=== PATIENT | male | born 1935 | race Caucasian/White ===

== ENCOUNTER 2016-09-26 06:52 | Emergency (ER) | payer MEDICARE, OTHER ==
[2016-09-26] MEDS ORDERED: OXYMETAZOLINE NASAL SPRAY NAS STA (07:27)
[2016-09-26] MEDS ORDERED: DEXAMETHASONE 10 MG/ML VIAL PO STA (07:27)
[2016-09-26] MEDS ORDERED: SULFAMETH/TRIMETH DS 800/160 MG TABLET PO STA (07:29)
[2016-09-26] MEDS ORDERED: DEXAMETHASONE 10 MG/ML VIAL ONE (07:32)
[2016-09-26] MEDS ORDERED: OXYMETAZOLINE NASAL SPRAY NAS ONE (07:32)
[2016-09-26] MEDS ORDERED: SULFAMETH/TRIMETH DS 800/160 MG TABLET PO ONE (07:32)
[2016-09-26] MEDS ORDERED: CHERRY SYRUP 10 ML UDC PO ONE (07:32)
== END 2016-09-26 07:59 | disposition home or self-care (01) ==
DX: J01.20 Acute ethmoidal sinusitis, unspecified (principal); Z79.01 Long term (current) use of anticoagulants; I48.91 Unspecified atrial fibrillation; I25.10 Atherosclerotic heart disease of native coronary artery without angina pectoris; Z95.1 Presence of aortocoronary bypass graft; Z95.810 Presence of automatic (implantable) cardiac defibrillator; F17.200 Nicotine dependence, unspecified, uncomplicated
CPT/HCPCS: 99283; A9270

== ENCOUNTER 2017-01-26 08:10 | Outpatient (CLI) | payer MEDICARE, OTHER ==
[2017-01-26 14:26] LABS: BASOPHILS # (AUTO) 0.1 10^3/uL (0.0-0.1); BASOPHILS % (AUTO) 1.1 %; EOSINOPHILS # (AUTO) 0.3 10^3/uL (0.0-0.7); EOSINOPHILS % (AUTO) 3.2 %; HCT - HEMATOCRIT 42.8 % (42.0-52.0); HGB - HEMOGLOBIN 14.5 g/dL (14.0-18.0); LYMPHOCYTES # (AUTO) 1.9 10^3/uL (1.5-3.5); LYMPHOCYTES % (AUTO) 21.7 %; MEAN CORPUSCULAR HEMOGLOBIN 34.2 pg (27.0-31.0); MEAN CORPUSCULAR VOLUME 100.6 fL (80.0-94.0); MEAN PLATELET VOLUME 10.6 fL (7.4-11.4); MONOCYTES # (AUTO) 1.5 10^3/uL (0.0-1.0); MONOCYTES % (AUTO) 17.5 %; NEUTROPHILS # (AUTO) 4.9 10^3/uL (1.5-6.6); NEUTROPHILS % (AUTO) 56.5 %; NUCLEATED RED BLOOD CELLS AUTO 0.1 /100WBC; RED BLOOD COUNT 4.25 10^6/uL (4.70-6.10); RED CELL DISTRIBUTION WIDTH 14.6 % (12.0-15.0); UNCORRECTED WHITE BLOOD COUNT 8.7 x10^3/uL; WHITE BLOOD COUNT 8.7 x10^3/uL (4.8-10.8)
[2017-01-26 14:35] LABS: ALBUMIN/GLOBULIN RATIO 1.1 (1.0-2.2); BILIRUBIN,TOTAL 1.1 mg/dL (0.2-1.0); BUN - BLOOD UREA NITROGEN 19 mg/dL (6-20); CALCIUM 9.5 mg/dL (8.5-10.3); CARBON DIOXIDE - CO2 26 mmol/L (21-32); CHLORIDE 103 mmol/L (101-111); CHOL/HDL RATIO 2.9 (<5.0); CHOLESTEROL 99 mg/dL; CREATININE 1.2 mg/dL (0.6-1.2); GFR - MDRD 58 (>89); GLUCOSE 91 mg/dL (70-100); HDL CHOLESTEROL 34 mg/dL; LDL/HDL RATIO 0.9 (<3.6); POTASSIUM 4.2 mmol/L (3.5-5.0); SODIUM 138 mmol/L (135-145); TOTAL PROTEIN 7.8 g/dL (6.7-8.2); TRIGLYCERIDES 171 mg/dL; VLDL CHOLESTEROL 34 mg/dL
== END 2017-01-26 08:11 | disposition home or self-care (01) ==
LOC: LAB.R 08:10
PROVIDERS: ATTEND Internal Medicine
DX: E78.2 Mixed hyperlipidemia (principal); I10 Essential (primary) hypertension; I25.10 Atherosclerotic heart disease of native coronary artery without angina pectoris; Z79.899 Other long term (current) drug therapy
CPT/HCPCS: 80053; 80061; 80162; 85025

== ENCOUNTER 2017-05-07 12:15 | Emergency (ER) | payer MEDICARE, OTHER ==
--- NOTE | 2017-05-07 12:19 | ED Physician Documentation ---
PD HPI DYSPNEA - Stated complaint Stated Complaint: SOA - History obtained from History obtained from: Patient - History of Present Illness Timing - onset: How many weeks ago (2) Timing - onset during: Light activity Timing - details: Gradual onset, Still present (has had cough, malaise, dyspnea and wheeze worsening for 2 weeks. Initially noted after flying to [place], and seen in ER there with heart testing/ECHO that was okay, according to patient. Given ALbuterol MDI. He is still having cough with sputum. Seen in office couple days ago and told to keep up with the inhaler. He is having worse cough and breathing overnight.) Inciting event(s): URI. No: Out of meds Improved by: Inhaler/neb (somewhat) Worsened by: Exertion, Coughing. No: Laying flat Associated symptoms: Cough, Wheezing. No: Hemoptysis, Chest pain / discomfort, Bilateral edema Similar symptoms before: Has not had sx before Recently seen: Clinic, Emergency Dept Review of Systems Constitutional: reports: Chills, Myalgias. denies: Fever Nose: reports: Congestion. denies: Rhinorrhea / runny nose Throat: denies: Sore throat Cardiac: reports: Palpitations. denies: Chest pain / pressure, Pedal edema, Calf pain Respiratory: reports: Cough (with white/green sputum production) GI: reports: Diarrhea (mild for a week). denies: Abdominal Pain, Nausea, Vomiting : denies: Dysuria, Frequency Skin: denies: Rash Neurologic: denies: Generalized weakness, Focal weakness, Numbness, Altered mental status PD PAST MEDICAL HISTORY - Past Medical History Cardiovascular: Congestive heart failure, Coronary artery disease, Atrial fibrillation Respiratory: Sleep apnea, CPAP use Derm: None - Past Surgical History Past Surgical History: Yes Cardiovascular: CABG, AICD - Present Medications Home Medications: Ambulatory Orders Medication Instructions Recorded Confirmed Candesartan Cilexetil [Atacand] 4 mg PO DAILY 11/06/13 05/31/16 Digoxin [Lanoxin] 250 mcg PO DAILY 11/06/13 05/31/16 Montelukast [Singulair] 10 mg PO QPM 11/06/13 05/31/16 Rosuvastatin [Crestor] 40 mg PO QPM 11/06/13 05/31/16 Hydrocodone/Acetaminophen [Lortab 1 each PO Q4HR #14 tablet 05/20/16 05/31/16 5-325 mg Tablet] Aspirin [Aspir-Low] 81 mg PO DAILY 05/31/16 05/31/16 Ciclesonide [Omnaris] 1 spray BIRD DAILY 05/31/16 05/31/16 Krill/Om-3/Dha/Epa/Phospho/Ast 1 cap PO DAILY 05/31/16 05/31/16 [[place]-3 Krill Oil 300 mg Sfgl] Multivitamin [Multivitamins] 1 cap PO DAILY 05/31/16 05/31/16 Olopatadine HCl [Patanase] 1 spray BIRD DAILY 05/31/16 05/31/16 Rabeprazole Sodium [Aciphex] 20 mg PO DAILY 05/31/16 05/31/16 Simvastatin [Zocor] 5 mg PO DAILY 05/31/16 05/31/16 Vitamin E 1 cap PO DAILY 05/31/16 05/31/16 Esomeprazole Magnesium [Nexium] 40 mg PO DAILY 07/29/16 07/29/16 Fluticasone [Flonase] 1 spray INH DAILY 07/29/16 07/29/16 Metoprolol Succinate [Toprol Xl] 25 mg PO DAILY 07/29/16 07/29/16 Rivaroxaban [Xarelto] 20 mg PO DAILY 07/29/16 07/29/16 Dexamethasone [Decadron] 4 mg PO DAILY #5 tablet 09/26/16 Sulfamethoxazole/Trimethoprim 1 each PO BID #14 tablet 09/26/16 [Bactrim Ds Tablet] Dexamethasone [Decadron] 4 mg PO DAILY #5 tablet 05/07/17 Doxycycline Hyclate 100 mg PO BID #14 tablet 05/07/17 - Allergies Allergies/Adverse Reactions: Allergies Allergy/AdvReac Type Severity Reaction Status Date / Time Penicillins Allergy Unknown unk Verified 05/07/17 12:33 - Social History Does the pt smoke?: No Smoking Status: Current some day smoker Does the pt drink ETOH?: No Does the pt have substance abuse?: No - Immunizations Immunizations are current?: Yes - POLST Patient has POLST: No PD ED PE NORMAL - Vitals Vital signs reviewed: Yes - General General: Alert and oriented X 3, Well developed/nourished - HEENT HEENT: Pharynx benign - Neck Neck: Supple, no meningeal sign, No adenopathy - Cardiac Cardiac: RRR, No murmur - Respiratory Respiratory: No: Clear bilaterally (mild scattered wheezing. no coarse sounds. ) - Abdomen Abdomen: Soft, Non tender - Back Back: No CVA TTP - Derm Derm: Normal color, Warm and dry - Extremities Extremities: Normal ROM s pain, No edema, No calf tenderness / cord - Neuro Neuro: Alert and oriented X 3, No motor deficit, Normal speech - Psych Psych: Normal mood, Normal affect Results - Vitals Vitals: Oxygen O2 Source Room air - EKG (time done) 12:39 Rate: Rate (enter#) (70) Rhythm: Paced [place]: Normal Ischemia: Non specific changes - Labs Labs: Laboratory Tests 05/07/17 05/07/17 05/07/17 12:54 12:54 12:54 WBC 7.9 RBC 3.89 L Hgb 13.3 L Hct 39.6 L MCV 101.8 H MCH 34.3 H MCHC 33.7 RDW 16.4 H Plt Count 151 MPV 9.3 Neut # 5.3 Lymph # 1.1 L [place] # 1.2 H Eos # 0.2 Baso # 0.1 Absolute Nucleated RBC 0.00 Nucleated RBCs 0.0 Sodium 137 Potassium 4.1 Chloride 105 Carbon Dioxide 24 Anion Gap 8.0 BUN 16 Creatinine 1.2 Estimated GFR (MDRD) 58 L Glucose 117 H Calcium 9.1 Magnesium 2.3 Total Bilirubin 1.7 H AST 30 ALT 24 Alkaline Phosphatase 118 B-Natriuretic Peptide 600 H Total Protein 7.3 Albumin 3.7 Globulin 3.6 Albumin/Globulin Ratio 1.0 Lipase 44 Last Dose Date Last Dose Time Digoxin 05/07/17 12:54 WBC RBC Hgb Hct MCV MCH MCHC RDW Plt Count MPV Neut # Lymph # [place] # Eos # Baso # Absolute Nucleated RBC Nucleated RBCs Sodium Potassium Chloride Carbon Dioxide Anion Gap BUN Creatinine Estimated GFR (MDRD) Glucose Calcium Magnesium Total Bilirubin AST ALT Alkaline Phosphatase B-Natriuretic Peptide Total Protein Albumin Globulin Albumin/Globulin Ratio Lipase Last Dose Date UNK Last Dose Time UNK Digoxin 1.6 - Rads (name of study) chest xray Radiology: Prelim report reviewed (mild effusion; no infiltrates; overexpanded lungs) PD MEDICAL DECISION MAKING - ED course Complexity details: reviewed results, re-evaluated patient (improved with neb and will treat with abx given the symptoms and history of COPD. ), considered differential, d/w patient Departure - Departure Disposition: 01 Home, Self Care Clinical Impression: Bronchitis Dyspnea Qualifiers: Dyspnea type: dyspnea on exertion Qualified Code(s): R06.09 - Other forms of dyspnea Asthma Qualifiers: Asthma severity: mild intermittent Asthma complication type: with acute exacerbation Qualified Code(s): J45.21 - Mild intermittent asthma with (acute) exacerbation Clinical Impression: (Ruled Out): Pneumonia Condition: Stable Record reviewed to determine appropriate education?: Yes Instructions: ED Upper Resp Infec Abx Tx Follow-Up: Tonio Edmondson MD [Primary Care Provider] - Prescriptions: Dexamethasone [Decadron] 4 mg PO DAILY #5 tablet Doxycycline Hyclate 100 mg PO BID #14 tablet Comments: Continue usual medications. Use the albuterol (ProAir air) inhaler 2 puffs 4 times a day for the next 7-10 days. Add dexamethasone daily for 5 more days and doxycycline antibiotic twice daily for a week. Recheck if not improved over the next few days and return sooner if worsening. Discharge Date/Time: 05/07/17 14:05
[2017-05-07] MEDS ORDERED: IPRATROPIUM/ALBUTEROL 3 ML NEB INH STA (12:30)
[2017-05-07] MEDS ORDERED: IPRATROPIUM/ALBUTEROL 3 ML NEB INH ONE (12:39)
[2017-05-07] MEDS ORDERED: HYDROmorphone 1 MG/ML SYRINGE IVP STA (13:02)
[2017-05-07 13:04] LABS: BASOPHILS # (AUTO) 0.1 10^3/uL (0.0-0.1); BASOPHILS % (AUTO) 1.1 %; EOSINOPHILS # (AUTO) 0.2 10^3/uL (0.0-0.7); HCT - HEMATOCRIT 39.6 % (42.0-52.0); HGB - HEMOGLOBIN 13.3 g/dL (14.0-18.0); LYMPHOCYTES # (AUTO) 1.1 10^3/uL (1.5-3.5); LYMPHOCYTES % (AUTO) 14.3 %; MEAN CORPUSCULAR HEMOGLOBIN 34.3 pg (27.0-31.0); MEAN CORPUSCULAR HGB CONC 33.7 g/dL (32.0-36.0); MEAN CORPUSCULAR VOLUME 101.8 fL (80.0-94.0); MEAN PLATELET VOLUME 9.3 fL (7.4-11.4); MONOCYTES # (AUTO) 1.2 10^3/uL (0.0-1.0); MONOCYTES % (AUTO) 15.3 %; NEUTROPHILS # (AUTO) 5.3 10^3/uL (1.5-6.6); NEUTROPHILS % (AUTO) 67.3 %; RED BLOOD COUNT 3.89 10^6/uL (4.70-6.10); RED CELL DISTRIBUTION WIDTH 16.4 % (12.0-15.0); UNCORRECTED WHITE BLOOD COUNT 7.9 x10^3/uL; WHITE BLOOD COUNT 7.9 x10^3/uL (4.8-10.8)
[2017-05-07 13:16] LABS: BILIRUBIN,TOTAL 1.7 mg/dL (0.2-1.0); CALCIUM 9.1 mg/dL (8.5-10.3); CREATININE 1.2 mg/dL (0.6-1.2); MAGNESIUM 2.3 mg/dL (1.7-2.8); POTASSIUM 4.1 mmol/L (3.5-5.0); TOTAL PROTEIN 7.3 g/dL (6.7-8.2)
--- NOTE | 2017-05-07 13:17 | XRAY Preliminary Report ---
Exam: XR Chest 2 View PA/LAT IMPRESSION: 1. Moderate cardiomegaly. AICD. 2. Tiny right pleural effusion. 3. Overexpanded lungs. [facility] SITE ID: [id number]
--- NOTE | 2017-05-07 13:30 | XRAY Report ---
EXAM: CHEST RADIOGRAPHY EXAM DATE: 05/07/2017 01:01 PM. CLINICAL HISTORY: Cough and dyspnea for 2 weeks, worsening. COMPARISON: 11/06/2013. TECHNIQUE: 2 views. FINDINGS: Lungs/Pleura: New mild blunting right posterior costophrenic angle. No vascular congestion, focal con solidation nor pneumothorax. Overexpanded lungs. Mediastinum: Increasing cardiomegaly now moderate in degree. Stable dual-lead left subclavian AICD. R emote CABG. Other: Calcific tendinitis right shoulder. IMPRESSION: 1. Moderate cardiomegaly. AICD. 2. Tiny right pleural effusion. 3. Overexpanded lungs. [facility] Referring Provider Line: [phone] SITE ID: [id number]
[2017-05-07] MEDS ORDERED: DOXYCYCLINE 100 MG TABLET PO STA (13:32)
[2017-05-07] MEDS ORDERED: DEXAMETHASONE 10 MG/ML VIAL PO STA (13:32)
[2017-05-07] MEDS ORDERED: DEXAMETHASONE 10 MG/ML VIAL ONE (13:48)
[2017-05-07] MEDS ORDERED: DOXYCYCLINE 100 MG TABLET PO ONE (13:49)
[2017-05-07 13:57] VITALS: BP 143/90
== END 2017-05-07 14:05 | disposition home or self-care (01) ==
LOC: ED 12:15
DX: J40 Bronchitis, not specified as acute or chronic (principal); J45.21 Mild intermittent asthma with (acute) exacerbation; R94.31 Abnormal electrocardiogram [ECG] [EKG]; I25.10 Atherosclerotic heart disease of native coronary artery without angina pectoris; Z95.1 Presence of aortocoronary bypass graft; Z95.810 Presence of automatic (implantable) cardiac defibrillator; Z79.82 Long term (current) use of aspirin
CPT/HCPCS: 36415; 71020; 80053; 80162; 83690; 83735; 83880; 85025; 93005; 94640; 96374; 99283; 99284; A9270; J7620

== ENCOUNTER 2017-05-27 13:29 | Outpatient (CLI) | payer MEDICARE, OTHER | END 2017-05-27 13:30 | disposition home or self-care (01) | LOC: SC 13:29 | PROVIDERS: ATTEND Nurse Practitioner Family | DX: G47.33 Obstructive sleep apnea (adult) (pediatric) (principal) | CPT/HCPCS: 99204; G0463; 99212 ==

== ENCOUNTER 2017-06-11 14:51 | Outpatient (CLI) | payer MEDICARE, OTHER ==
--- NOTE | 2017-06-11 15:50 | CT Report ---
CT OF THE SINUSES: 06/11/2017 CLINICAL INDICATION: Rhinosinusitis. TECHNIQUE: Axial CT images of the paranasal sinuses were obtained without contrast, following which s agittal and coronal reconstructions were performed. FINDINGS: There is mild mucosal thickening in the maxillary sinuses, patchy opacification of the eth moid air cells. No air fluid levels are seen. The sphenoid sinus and frontal sinuses are clear. No os seous destruction is appreciated. The visualized intraorbital contents are unremarkable. 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 In accordance with CT protocol optimization, one or more of the following dose reduction techniques w ere utilized for this exam: automated exposure control, adjustment of mA and/or KV based on patient size, or use of iterative reconstructive technique. JOB #: [id number] EXT JOB #:[id number]
== END 2017-06-11 14:52 | disposition home or self-care (01) ==
LOC: DI 14:51
PROVIDERS: ATTEND Nurse Practitioner Primary Care
DX: J32.0 Chronic maxillary sinusitis (principal); J32.2 Chronic ethmoidal sinusitis
CPT/HCPCS: 70486

== ENCOUNTER 2017-06-27 08:00 | Outpatient (CLI) | payer MEDICARE, OTHER | END 2017-06-27 23:59 | disposition home or self-care (01) | LOC: SC 08:00 | PROVIDERS: ATTEND Internal Medicine Pulmonary Disease | DX: G47.33 Obstructive sleep apnea (adult) (pediatric) (principal); G47.61 Periodic limb movement disorder; Z68.29 Body mass index [BMI] 29.0-29.9, adult | CPT/HCPCS: 95811 ==

== ENCOUNTER 2017-07-19 14:09 | Outpatient (CLI) | payer MEDICARE, OTHER | END 2017-07-19 14:10 | disposition home or self-care (01) | LOC: SC 14:09 | PROVIDERS: ATTEND Nurse Practitioner Family | DX: G47.33 Obstructive sleep apnea (adult) (pediatric) (principal); G47.61 Periodic limb movement disorder | CPT/HCPCS: 99214; G0463; 99212 ==

== ENCOUNTER 2017-09-02 14:18 | Outpatient (CLI) | payer MEDICARE, OTHER | END 2017-09-02 14:19 | disposition home or self-care (01) | LOC: SC 14:18 | PROVIDERS: ATTEND Nurse Practitioner Family | DX: G47.33 Obstructive sleep apnea (adult) (pediatric) (principal) | CPT/HCPCS: 99214; G0463; 99212 ==

== ENCOUNTER 2017-10-09 08:06 | Inpatient (IN) | payer MEDICARE, OTHER ==
[2017-10-09 09:10] LABS: BASOPHILS # (AUTO) 0.1 10^3/uL (0.0-0.1); EOSINOPHILS % (AUTO) 0.5 %; HGB - HEMOGLOBIN 13.5 g/dL (14.0-18.0); LYMPHOCYTES # (AUTO) 0.5 10^3/uL (1.5-3.5); LYMPHOCYTES % (AUTO) 5.9 %; MEAN CORPUSCULAR HGB CONC 33.4 g/dL (32.0-36.0); MEAN CORPUSCULAR VOLUME 101.8 fL (80.0-94.0); MEAN PLATELET VOLUME 9.3 fL (7.4-11.4); MONOCYTES # (AUTO) 1.7 10^3/uL (0.0-1.0); MONOCYTES % (AUTO) 20.7 %; NEUTROPHILS # (AUTO) 6.1 10^3/uL (1.5-6.6); NEUTROPHILS % (AUTO) 71.9 %; PLT - PLATELET COUNT 152 10^3/uL (130-450); RED BLOOD COUNT 3.96 10^6/uL (4.70-6.10); RED CELL DISTRIBUTION WIDTH 17.6 % (12.0-15.0); WHITE BLOOD COUNT 8.4 x10^3/uL (4.8-10.8)
[2017-10-09 09:18] LABS: ALBUMIN 3.7 g/dL (3.2-5.5); BILIRUBIN,TOTAL 2.4 mg/dL (0.2-1.0); CALCIUM 8.8 mg/dL (8.5-10.3); CREATININE 1.3 mg/dL (0.6-1.2); TOTAL PROTEIN 7.4 g/dL (6.7-8.2)
--- NOTE | 2017-10-09 09:26 | XRAY Preliminary Report ---
Exam: XR CHEST 2 VIEW X-RAY IMPRESSION: 1. Asymmetric peribronchovascular hazy opacities on the right and mild bibasilar interstitial promine nce. Differential includes bronchopneumonia versus mild asymmetric interstitial pulmonary edema. Foll ow-up recommended. 2. Stable mild cardiomegaly. [facility] SITE ID: [id number]
--- NOTE | 2017-10-09 09:26 | XRAY Report ---
EXAM: CHEST RADIOGRAPHY EXAM DATE: 10/09/2017 08:42 AM. CLINICAL HISTORY: Cough x 1 month. Shortness of breath. COMPARISON: 05/07/2017. TECHNIQUE: 2 views. FINDINGS: Lungs/Pleura: Mild peribronchovascular hazy opacities on the right including perihilar region. No seg mental consolidation. Mild interstitial prominence of the lung bases. No pneumothorax or pleural effu sheree. Mediastinum: Stable mild cardiomegaly. Left subclavian ICD as before. CABG. Other: No acute bony abnormality. Left shoulder calcific tendinitis. IMPRESSION: 1. Asymmetric peribronchovascular hazy opacities on the right and mild bibasilar interstitial promine nce. Differential includes bronchopneumonia versus mild asymmetric interstitial pulmonary edema. Foll ow-up recommended. 2. Stable mild cardiomegaly. [facility] Referring Provider Line: [phone] SITE ID: [id number]
--- NOTE | 2017-10-09 09:29 | ED Physician Documentation ---
PD HPI URI - Stated complaint Stated Complaint: DIFF BREATHING/COUGH - Chief complaint Chief Complaint: Resp - History obtained from History obtained from: Patient - History of Present Illness Timing - onset: How many weeks ago (2) Timing duration: Weeks (2) Timing details: Gradual onset, Still present, Waxing and waning Associated symptoms: Fever, Chills, Nasal congestion, Rhinorrhea, Productive cough, Dyspnea Contributing factors: Sick contact (was on a cruise) Improves by: Rest, Medication Similar symptoms before: Diagnosis (bronchitis) Recently seen: Emergency Dept - Additional information Additional information: 82-year-old male with a history of coronary artery disease disease with a pacer in place has been on a cruise recently and returned 2 days ago. Following his cruise he felt poorly and went into an emergency department in [place] was administered Lasix. He states this is happened to him previously with travel on a cruise ship and consumption of too much salt. He has however had a cough for the past 2 weeks which did improve somewhat and then worsened now he is coughing and having coughing paroxysms and coughing up thick yellow phlegm. Review of Systems Constitutional: reports: Fever, Chills, Myalgias Eyes: denies: Decreased vision Ears: denies: Ear pain Nose: reports: Rhinorrhea / runny nose, Congestion, Sinus pressure / pain Throat: denies: Sore throat Cardiac: denies: Chest pain / pressure, Palpitations Respiratory: reports: Dyspnea, Cough GI: denies: Abdominal Pain, Nausea, Vomiting : denies: Dysuria, Frequency Skin: denies: Rash Musculoskeletal: denies: Neck pain, Back pain, Extremity pain Neurologic: denies: Generalized weakness, Focal weakness, Numbness PD PAST MEDICAL HISTORY - Past Medical History Cardiovascular: Congestive heart failure, Coronary artery disease, Atrial fibrillation Respiratory: Sleep apnea, CPAP use Derm: None - Past Surgical History Past Surgical History: Yes Cardiovascular: CABG, AICD - Present Medications Home Medications: Ambulatory Orders Medication Instructions Recorded Confirmed Candesartan Cilexetil [Atacand] 4 mg PO DAILY 11/06/13 05/31/16 Digoxin [Lanoxin] 250 mcg PO DAILY 11/06/13 05/31/16 Montelukast [Singulair] 10 mg PO QPM 11/06/13 05/31/16 Rosuvastatin [Crestor] 40 mg PO QPM 11/06/13 05/31/16 Hydrocodone/Acetaminophen [Lortab 1 each PO Q4HR #14 tablet 05/20/16 05/31/16 5-325 mg Tablet] Aspirin [Aspir-Low] 81 mg PO DAILY 05/31/16 05/31/16 Ciclesonide [Omnaris] 1 spray BIRD DAILY 05/31/16 05/31/16 Krill/Om-3/Dha/Epa/Phospho/Ast 1 cap PO DAILY 05/31/16 05/31/16 [[place]-3 Krill Oil 300 mg Sfgl] Multivitamin [Multivitamins] 1 cap PO DAILY 05/31/16 05/31/16 Olopatadine HCl [Patanase] 1 spray BIRD DAILY 05/31/16 05/31/16 Rabeprazole Sodium [Aciphex] 20 mg PO DAILY 05/31/16 05/31/16 Simvastatin [Zocor] 5 mg PO DAILY 05/31/16 05/31/16 Vitamin E 1 cap PO DAILY 05/31/16 05/31/16 Esomeprazole Magnesium [Nexium] 40 mg PO DAILY 07/29/16 07/29/16 Fluticasone [Flonase] 1 spray INH DAILY 07/29/16 07/29/16 Metoprolol Succinate [Toprol Xl] 25 mg PO DAILY 07/29/16 07/29/16 Rivaroxaban [Xarelto] 20 mg PO DAILY 07/29/16 07/29/16 Dexamethasone [Decadron] 4 mg PO DAILY #5 tablet 09/26/16 Sulfamethoxazole/Trimethoprim 1 each PO BID #14 tablet 09/26/16 [Bactrim Ds Tablet] Dexamethasone [Decadron] 4 mg PO DAILY #5 tablet 05/07/17 Doxycycline Hyclate 100 mg PO BID #14 tablet 05/07/17 - Allergies Allergies/Adverse Reactions: Allergies Allergy/AdvReac Type Severity Reaction Status Date / Time Penicillins Allergy Unknown unk Verified 10/09/17 08:12 - Social History Does the pt smoke?: No Smoking Status: Never smoker Does the pt drink ETOH?: No Does the pt have substance abuse?: No - Immunizations Immunizations are current?: Yes - POLST Patient has POLST: No PD ED PE NORMAL - Vitals Vital signs reviewed: Yes (tachy and hypertensive) - General General: Alert and oriented X 3, No acute distress, Well developed/nourished, Other (82 y/o male wearing a mask and having some coughing paroxysms) - HEENT HEENT: Atraumatic, PERRL, EOMI, Other (The mucous mebranes are dry. There is erythema to both TM's with retained landmarks. 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, No motor deficit, No sensory deficit, Normal speech Eye Opening: Spontaneous Motor: Obeys Commands Verbal: Oriented GCS Score: 15 - Psych Psych: Normal mood, Normal affect Results - Vitals Vitals: Vital Signs - 24 hr 10/09/17 10/09/17 10/09/17 08:10 09:49 10:53 Temperature 36.8 C Heart Rate 114 H 100 73 Respiratory 22 18 18 Rate Blood Pressure 142/96 H 129/89 H 138/72 H O2 Saturation 95 99 92 10/09/17 12:52 Temperature Heart Rate 72 Respiratory 14 Rate Blood Pressure 122/98 H O2 Saturation 94 Oxygen O2 Source Room air - EKG (time done) 0819 Rate: Rate (enter#) (83) Rhythm: Paced Compare to prior EKG: Unchanged from prior EKG Computer interpretation: Agree with computer - Labs Labs: Microbiology 10/09/17 09:40 Respiratory Culture - Preliminary Sputum Laboratory Tests 10/09/17 10/09/17 10/09/17 08:50 08:55 08:55 WBC 8.4 RBC 3.96 L Hgb 13.5 L Hct 40.3 L MCV 101.8 H MCH 34.0 H MCHC 33.4 RDW 17.6 H Plt Count 152 MPV 9.3 Neut # 6.1 Lymph # 0.5 L [place] # 1.7 H Eos # 0.0 Baso # 0.1 Absolute Nucleated RBC 0.01 Nucleated RBC % 0.1 Sodium 136 Potassium 4.2 Chloride 101 Carbon Dioxide 22 Anion Gap 13.0 BUN 24 H Creatinine 1.3 H Estimated GFR (MDRD) 53 L Glucose 155 H Calcium 8.8 Total Bilirubin 2.4 H AST 44 H ALT 30 Alkaline Phosphatase 146 H Troponin I Total Protein 7.4 Albumin 3.7 Globulin 3.7 Albumin/Globulin Ratio 1.0 Lipase 31 Influenza A (Rapid) Negative Influenza B (Rapid) Negative Influenza Types A,B Ag - 10/09/17 08:55 WBC RBC Hgb Hct MCV MCH MCHC RDW Plt Count MPV Neut # Lymph # [place] # Eos # Baso # Absolute Nucleated RBC Nucleated RBC % Sodium Potassium Chloride Carbon Dioxide Anion Gap BUN Creatinine Estimated GFR (MDRD) Glucose Calcium Total Bilirubin AST ALT Alkaline Phosphatase Troponin I 0.07 Total Protein Albumin Globulin Albumin/Globulin Ratio Lipase Influenza A (Rapid) Influenza B (Rapid) Influenza Types A,B Ag - Rads (name of study) 2 view chest Radiology: Prelim report reviewed (Impression: 1. Asymmetric jackson- bronchovascular hazy opacities on the right and mild bibasilar interstitial prominence. Differential includes bronchopneumonia versus mild asymmetric interstitial pulmonary edema. Follow-up recommended. 2. Stable mild cardiomegaly.), EMP read indepedently, See rad report Procedures - IVC sono (time) 0938 Bedside IVC sono: IVC measures (cm) (2.93), IVC collapsed c insp (cm) (2.73), High CVP, Fluid overload PD MEDICAL DECISION MAKING - ED course Complexity details: reviewed old records, reviewed results, re-evaluated patient , considered differential, d/w patient ED course: 82-year-old male recently returned from a cruise appears to have some fluid overload and has URI with sputum production worsening and chest x-ray consistent with infiltrate. He would prefer being in the hospital as he feels ill. There is evidence on the patient's chest x-ray of both infiltrate and fluid overload. He does have a plethoric IVC and he is administered Lasix 40 mg intravenously. He does have some improvement in his shortness of breath with this but still feels he would rather be in the hospital to treat pneumonia. He states he has never had pneumonia before he has had 2 bypass operations and the battery is running out on his AICD. Dr. Pearson is consulted in the case and graciously agrees to admit the patient to the hospital for treatment of pneumonia. Departure - Departure Disposition: 66 [facility] DC/Xfer Clinical Impression: Pneumonia Qualifiers: Pneumonia type: due to unspecified organism Laterality: right Lung location: middle lobe of lung Qualified Code(s): J18.1 - Lobar pneumonia, unspecified organism Congestive heart failure Qualifiers: Congestive heart failure type: systolic Congestive heart failure chronicity: acute on chronic Qualified Code(s): I50.23 - Acute on chronic systolic ( congestive) heart failure Condition: Stable
[2017-10-09] MEDS ORDERED: FUROSEMIDE 40 MG/4 ML VIAL IVP STA (09:41)
[2017-10-09] MEDS: SODIUM CHLORIDE 0.9% 1,000 ML IV SCH (14:52)
[2017-10-09] MEDS: SODIUM CHLORIDE FLUSH 0.9% 10 ML SYRINGE IVP SCH ×2 (14:52→20:40)
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
[2017-10-09] MEDS ORDERED: CEFEPIME 2 GM in SODIUM CHLORIDE 0.9% MINIBAG 100 ML IV SCH (17:00)
[2017-10-09] MEDS ORDERED: VANCOMYCIN INJ 1 GM in SODIUM CHLORIDE 0.9% 250 ML IV SCH (17:00)
[2017-10-09] MEDS: CEFEPIME 2 GM in SODIUM CHLORIDE 0.9% MINIBAG 100 ML IV SCH (17:46)
[2017-10-09] MEDS: methylPREDNISolone SUCCINATE 40 MG/ML VIAL IVP SCH ×2 (17:49→22:24)
[2017-10-09 17:54] LABS: VBG BASE EXCESS 1.8 mmol/L (-2 - +2); VBG PCO2 51.1 mmHg (41-51); VBG PH 7.359 (7.31-7.41); VBG PO2 28.4 mmHg (25-47); VBG TOTAL CO2 29.7 mmol/L (24-29)
[2017-10-09] MEDS: guaiFENesin 600 MG TABLET PO SCH (17:57)
[2017-10-09 18:04] LABS: CALCIUM 8.6 mg/dL (8.5-10.3); CREATININE 1.3 mg/dL (0.6-1.2); MAGNESIUM 2.3 mg/dL (1.7-2.8)
[2017-10-09 18:15] LABS: % IRON SATURATION 6 % (20-50); IRON 20 ug/dL (45-182); TOTAL IRON BINDING CAPACITY 360 ug/dL (250-450); TRANSFERRIN 257 mg/dL (180-329)
[2017-10-09] MEDS: RIVAROXABAN 10 MG TABLET PO SCH (18:28)
[2017-10-09] MEDS: METOPROLOL SUCCINATE 50 MG TABLET PO SCH (18:28)
[2017-10-09] MEDS: DIGOXIN 125 MCG TABLET PO SCH (18:28)
[2017-10-09] MEDS: VANCOMYCIN INJ 0.75 GM in SODIUM CHLORIDE 0.9% 250 ML IV SCH (19:02)
[2017-10-09 19:23] LABS: HB2 TOTAL 13.8 g/dL; HEMOGLOBIN A1C 0.68 g/dL; HEMOGLOBIN A1C % 6.7 % (4.6-6.2)
[2017-10-09] MEDS: ATORVASTATIN 40 MG TABLET PO SCH (21:29)
[2017-10-09] MEDS: guaiFENesin/CODEINE 5 ML UDC PO PRN (23:59)
[2017-10-10] MEDS: SODIUM CHLORIDE 0.9% 1,000 ML IV SCH ×2 (02:39→19:45)
[2017-10-10] MEDS: CEFEPIME 2 GM in SODIUM CHLORIDE 0.9% MINIBAG 100 ML IV SCH ×2 (04:59→17:23)
[2017-10-10] MEDS: methylPREDNISolone SUCCINATE 40 MG/ML VIAL IVP SCH ×3 (04:59→21:02)
[2017-10-10] MEDS: SODIUM CHLORIDE FLUSH 0.9% 10 ML SYRINGE IVP PRN ×2 (05:45→15:57)
[2017-10-10] MEDS: VANCOMYCIN INJ 0.75 GM in SODIUM CHLORIDE 0.9% 250 ML IV SCH (05:45)
[2017-10-10] MEDS: SODIUM CHLORIDE FLUSH 0.9% 10 ML SYRINGE IVP SCH ×3 (05:45→21:04)
[2017-10-10 05:53] LABS: BASOPHILS % (AUTO) 0.4 %; HGB - HEMOGLOBIN 12.1 g/dL (14.0-18.0); LYMPHOCYTES # (AUTO) 0.4 10^3/uL (1.5-3.5); LYMPHOCYTES % (AUTO) 6.3 %; MEAN CORPUSCULAR HEMOGLOBIN 33.9 pg (27.0-31.0); MEAN CORPUSCULAR HGB CONC 33.7 g/dL (32.0-36.0); MEAN CORPUSCULAR VOLUME 100.6 fL (80.0-94.0); MEAN PLATELET VOLUME 9.1 fL (7.4-11.4); MONOCYTES # (AUTO) 0.3 10^3/uL (0.0-1.0); MONOCYTES % (AUTO) 5.3 %; NEUTROPHILS # (AUTO) 5.1 10^3/uL (1.5-6.6); PLT - PLATELET COUNT 131 10^3/uL (130-450); RED BLOOD COUNT 3.56 10^6/uL (4.70-6.10); RED CELL DISTRIBUTION WIDTH 17.5 % (12.0-15.0); WHITE BLOOD COUNT 5.7 x10^3/uL (4.8-10.8)
[2017-10-10] MEDS: PANTOPRAZOLE 40 MG TABLET PO SCH (06:00)
[2017-10-10] MEDS: guaiFENesin/CODEINE 5 ML UDC PO PRN ×2 (06:00→13:25)
[2017-10-10 06:07] LABS: ALBUMIN 3.1 g/dL (3.2-5.5); ALBUMIN/GLOBULIN RATIO 0.9 (1.0-2.2); BILIRUBIN,TOTAL 2.1 mg/dL (0.2-1.0); CALCIUM 8.2 mg/dL (8.5-10.3); TOTAL PROTEIN 6.6 g/dL (6.7-8.2)
[2017-10-10] MEDS ORDERED: VANCOMYCIN INJ 1 GM in SODIUM CHLORIDE 0.9% 250 ML IV SCH (07:27)
[2017-10-10] MEDS: RIVAROXABAN 10 MG TABLET PO SCH (08:11)
[2017-10-10] MEDS: POLYETHYLENE GLYCOL 3350 17 GM PACKET PO SCH (08:11)
[2017-10-10] MEDS: DIGOXIN 125 MCG TABLET PO SCH (08:12)
[2017-10-10] MEDS: METOPROLOL SUCCINATE 50 MG TABLET PO SCH (08:13)
[2017-10-10] MEDS: ASPIRIN EC 81 MG TABLET PO SCH (08:13)
[2017-10-10] MEDS: guaiFENesin 600 MG TABLET PO SCH ×2 (08:13→21:00)
[2017-10-10] MEDS ORDERED: RIVAROXABAN 10 MG TABLET PO SCH (09:00)
[2017-10-10] MEDS ORDERED: DIGOXIN 125 MCG TABLET PO SCH (09:00)
[2017-10-10] MEDS ORDERED: METOPROLOL SUCCINATE 50 MG TABLET PO SCH (09:00)
[2017-10-10] MEDS ORDERED: LEVALBUTEROL 1.25 MG/3 ML NEB INH ONE (09:13)
[2017-10-10] MEDS ORDERED: FUROSEMIDE 100 MG/10 ML VIAL IVP SCH (11:00)
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
[2017-10-10] MEDS: LEVALBUTEROL 1.25 MG/3 ML NEB INH PRN ×2 (12:59→17:30)
[2017-10-10] MEDS: FUROSEMIDE 40 MG/4 ML VIAL IVP SCH (15:54)
[2017-10-10] MEDS ORDERED: SODIUM CHLORIDE FLUSH 0.9% 10 ML SYRINGE ONE (16:09)
[2017-10-10] MEDS: VANCOMYCIN INJ 1 GM in SODIUM CHLORIDE 0.9% 250 ML IV SCH (17:59)
[2017-10-10] MEDS: ATORVASTATIN 40 MG TABLET PO SCH (21:00)
[2017-10-11] MEDS: LEVALBUTEROL 1.25 MG/3 ML NEB INH PRN ×3 (00:10→23:54)
[2017-10-11] MEDS: guaiFENesin/CODEINE 5 ML UDC PO PRN (00:18)
[2017-10-11] MEDS: CEFEPIME 2 GM in SODIUM CHLORIDE 0.9% MINIBAG 100 ML IV SCH ×2 (05:45→17:35)
[2017-10-11] MEDS: SODIUM CHLORIDE FLUSH 0.9% 10 ML SYRINGE IVP SCH ×4 (05:52→17:35)
[2017-10-11] MEDS: methylPREDNISolone SUCCINATE 40 MG/ML VIAL IVP SCH ×3 (05:52→21:18)
[2017-10-11 06:10] LABS: BASOPHILS # (AUTO) 0.1 10^3/uL (0.0-0.1); BASOPHILS % (AUTO) 0.4 %; HGB - HEMOGLOBIN 12.1 g/dL (14.0-18.0); LYMPHOCYTES # (AUTO) 0.4 10^3/uL (1.5-3.5); LYMPHOCYTES % (AUTO) 2.8 %; MEAN CORPUSCULAR HGB CONC 33.7 g/dL (32.0-36.0); MEAN CORPUSCULAR VOLUME 100.8 fL (80.0-94.0); MEAN PLATELET VOLUME 9.4 fL (7.4-11.4); MONOCYTES # (AUTO) 1.6 10^3/uL (0.0-1.0); MONOCYTES % (AUTO) 12.1 %; NEUTROPHILS # (AUTO) 11.4 10^3/uL (1.5-6.6); NEUTROPHILS % (AUTO) 84.7 %; PLT - PLATELET COUNT 150 10^3/uL (130-450); RED BLOOD COUNT 3.55 10^6/uL (4.70-6.10); RED CELL DISTRIBUTION WIDTH 17.5 % (12.0-15.0); WHITE BLOOD COUNT 13.5 x10^3/uL (4.8-10.8)
[2017-10-11 06:20] LABS: ALBUMIN 3.1 g/dL (3.2-5.5); ALBUMIN/GLOBULIN RATIO 0.9 (1.0-2.2); BILIRUBIN,TOTAL 1.8 mg/dL (0.2-1.0); CALCIUM 8.5 mg/dL (8.5-10.3); CREATININE 1.3 mg/dL (0.6-1.2); TOTAL PROTEIN 6.7 g/dL (6.7-8.2)
[2017-10-11] MEDS: VANCOMYCIN INJ 1 GM in SODIUM CHLORIDE 0.9% 250 ML IV SCH ×2 (06:28→18:42)
[2017-10-11] MEDS: PANTOPRAZOLE 40 MG TABLET PO SCH (06:28)
[2017-10-11 06:34] LABS: PLATELET ESTIMATE, MANUAL NORMAL (130-450,000) (NORMAL); PLATELET MORPHOLOGY NORMAL APPEARANCE (NORMAL); RBC MORPHOLOGY (MULTIPLE) NORMAL APPEARANCE (NORMAL)
[2017-10-11 06:38] LABS: VANCOMYCIN,TROUGH 18.2 ug/mL (5.0-15.0)
[2017-10-11] MEDS: DIGOXIN 125 MCG TABLET PO SCH (08:28)
[2017-10-11] MEDS: RIVAROXABAN 10 MG TABLET PO SCH (08:29)
[2017-10-11] MEDS: METOPROLOL SUCCINATE 50 MG TABLET PO SCH (08:29)
[2017-10-11] MEDS: FUROSEMIDE 40 MG/4 ML VIAL IVP SCH (08:30)
[2017-10-11] MEDS: ASPIRIN EC 81 MG TABLET PO SCH (08:30)
[2017-10-11] MEDS: POLYETHYLENE GLYCOL 3350 17 GM PACKET PO SCH (08:37)
[2017-10-11] MEDS: guaiFENesin 600 MG TABLET PO SCH ×2 (08:37→21:19)
--- NOTE | 2017-10-11 10:53 | PROVIDER PROGRESS NOTE ---
Subjective - Prog Note Date Prog Note Date: 10/11/17 Prog Note Time: 10:53 - Subjective Pt reports feeling: Improved Subjective: Isreal has no complaints and expresses concerns about "getting released too soon ". He believes he is improving and can demonstrate appropriate, motivated use of his incentive spirometer. He denies SOB, chest pain, N/V or a new cough. He notes his cough to be less every day. Echo results were reviewed with him, which shows overall improvement with an improved EF. High pulmonary pressures are expected to resolve after acute phase of lung infection. Current Medications - Current Medications Current Medications: Active Medications Aspirin (Ecotrin) 81 mg PO DAILY [facility] Last Admin: 10/11/17 08:30 Dose: 81 mg Atorvastatin Calcium (Lipitor) 80 mg PO QPM [facility] Last Admin: 10/10/17 21:00 Dose: 80 mg Digoxin (Lanoxin) 250 mcg PO DAILY [facility] Last Admin: 10/11/17 08:28 Dose: 250 mcg Furosemide (Lasix Inj 40 Mg Vial) 80 mg IVP DAILY [facility] Last Admin: 10/11/17 08:30 Dose: 80 mg Guaifenesin (Mucinex) 600 mg PO BID [facility] Last Admin: 10/11/17 08:37 Dose: Not Given Guaifenesin/Codeine Phosphate (Robitussin Ac) 5 ml PO Q6HR PRN PRN Reason: Cough Last Admin: 10/11/17 00:18 Dose: 5 ml Vancomycin HCl 1 gm/ Sodium (Chloride) 250 mls @ 167 mls/hr IV Q12H [facility] Last Infusion: 10/11/17 08:37 Dose: Infused Cefepime HCl 2 gm/ Sodium (Chloride) 100 mls @ 200 mls/hr IV Q12H [facility] Last Infusion: 10/11/17 06:17 Dose: Infused Levalbuterol HCl (Xopenex) 1.25 mg INH RTQ4H PRN PRN Reason: WHEEZING/SOB Last Admin: 10/11/17 08:28 Dose: 1.25 mg Methylprednisolone (Solu-Medrol (40mg Vial)) 40 mg IVP TID [facility] Last Admin: 10/11/17 14:14 Dose: 40 mg Metoprolol Succinate (Toprol Xl) 50 mg PO DAILY [facility] Last Admin: 10/11/17 08:29 Dose: 50 mg Pantoprazole Sodium (Protonix) 40 mg PO QDAC [facility] Last Admin: 10/11/17 06:28 Dose: 40 mg Polyethylene Glycol (Miralax) 17 gm PO DAILY [facility] Last Admin: 10/11/17 08:37 Dose: 17 gm Potassium Chloride (K-Dur) 40 meq PO DAILYWM [facility] Last Admin: 10/11/17 16:28 Dose: 40 meq Rivaroxaban (Xarelto) 20 mg PO DAILY [facility] Last Admin: 10/11/17 08:29 Dose: 20 mg Saccharomyces Boulardii (Florastor) 500 mg PO BIDWM [facility] Last Admin: 10/11/17 16:28 Dose: 500 mg Sodium Chloride (Normal Saline Flush 0.9%) 10 ml IVP PRN PRN PRN Reason: NEEDED PER PROVIDER ORDERS Last Admin: 10/10/17 15:57 Dose: 10 ml Sodium Chloride (Normal Saline Flush 0.9%) 10 ml IVP Q8HR [facility] Last Admin: 10/11/17 14:16 Dose: 20 ml Candesartan Cilexetil [Atacand] 4 mg PO DAILY 11/06/13 Digoxin [Lanoxin] 250 mcg PO DAILY 11/06/13 Montelukast [Singulair] 10 mg PO QPM 11/06/13 Rosuvastatin [Crestor] 40 mg PO QPM 11/06/13 Aspirin [Aspir-Low] 81 mg PO DAILY 05/31/16 Ciclesonide [Omnaris] 1 spray BIRD DAILY PRN 05/31/16 Krill/Om-3/Dha/Epa/Phospho/Ast [[place]-3 Krill Oil 300 mg Sfgl] 300 mg PO DAILY 05/31/16 Rabeprazole Sodium [Aciphex] 20 mg PO QDAC 05/31/16 Vitamin E 1,000 units PO DAILY 05/31/16 Rivaroxaban [Xarelto] 20 mg PO DAILY 07/29/16 Cephalexin [Keflex] 500 mg PO Q6H 10/09/17 Docusate Sodium 100 mg PO DAILY 10/09/17 Glucosamine/Chondro Bradley A [Glucosamine-Chondroitin Tab] 2 tab PO DAILY 10/09/17 Metoprolol Succinate 50 mg PO DAILY 10/09/17 Multivitamin [Theragran] 1 tab PO DAILY 10/09/17 Sildenafil Citrate [Viagra] 50 - 100 mg PO PRN PRN 10/09/17 Objective - Vital Signs/Intake & Output Reviewed Vital Signs: Yes Vital Signs: Vital Signs x48h Temp Pulse Resp BP Pulse Ox 10/11/17 07:56 36.5 C 70 18 119/73 95 10/11/17 05:50 36.5 C 70 16 121/55 L 94 Intake & Output: Intake & Output 10/08/17 10/09/17 10/10/17 10/11/17 23:59 23:59 23:59 23:59 Intake Total 8915.389 3373.333 1970 Output Total 200 3550 3250 Balance 6603.970 4898.333 -1280 - Objective General Appearance: positive: No acute distress, Alert Eyes Bilateral: positive: Normal inspection, PERRL Eyes: OU Conjunctivae pale ENT: positive: ENT inspection nml, Pharynx nml, Dry mucous membranes Neck: positive: Nml inspection, Thyroid nml, No JVD, Trachea midline Respiratory: positive: Chest non-tender, No respiratory distress, Wheezes, Rhonchi Cardiovascular: positive: Regular rate & rhythm, No gallop, Decreased pulse(s) Peripheral Pulses: 2+ Radial (R), 2+ Radial (L) Abdomen: positive: Non-tender, No organomegaly, Nml bowel sounds, No distention , Other (Isreal notes less abdominal girth swelling.) Back: positive: Nml inspection Skin: positive: No rash, Warm, Dry Extremities: positive: Non-tender, Full ROM, Nml appearance, Pedal edema (mild, chronic) Neurologic/Psychiatric: positive: Oriented x3, CN's nml (2-12), Motor nml, Sensation nml, Depressed mood/affect Reflexes: Bicep (R): 3+, Bicep (L): 3+ - Lab Results Fish Bones: 10/11/17 05:58 10/11/17 05:58 Other Labs: Lab Results x24hrs 10/11/17 10/11/17 10/11/17 Range/Units 05:58 05:58 05:58 WBC 13.5 H (4.8-10.8) x10^3/uL RBC 3.55 L (4.70-6.10) 10^6/uL Hgb 12.1 L (14.0-18.0) g/dL Hct 35.8 L (42.0-52.0) % MCV 100.8 H (80.0-94.0) fL MCH 34.0 H (27.0-31.0) pg MCHC 33.7 (32.0-36.0) g/dL RDW 17.5 H (12.0-15.0) % Plt Count 150 (130-450) 10^3/uL MPV 9.4 (7.4-11.4) fL Neut # 11.4 H (1.5-6.6) 10^3/uL Lymph # 0.4 L (1.5-3.5) 10^3/uL [place] # 1.6 H (0.0-1.0) 10^3/uL Eos # 0.0 (0.0-0.7) 10^3/uL Baso # 0.1 (0.0-0.1) 10^3/uL Absolute Nucleated RBC 0.00 x10^3/uL Nucleated RBC % 0.0 /100WBC Manual Slide Review Indicated Platelet Estimate NORMAL (130-450,000) (NORMAL) Platelet Morphology NORMAL APPEARANCE (NORMAL) RBC Morph Micro Appear NORMAL APPEARANCE (NORMAL) Sodium 138 (135-145) mmol/L Potassium 3.3 L (3.5-5.0) mmol/L Chloride 100 L (101-111) mmol/L Carbon Dioxide 26 (21-32) mmol/L Anion Gap 12.0 (6-13) BUN 24 H (6-20) mg/dL Creatinine 1.3 H (0.6-1.2) mg/dL Estimated GFR (MDRD) 53 L (>89) Glucose 162 H (70-100) mg/dL Calcium 8.5 (8.5-10.3) mg/dL Total Bilirubin 1.8 H (0.2-1.0) mg/dL AST 71 H (10-42) IU/L ALT 47 (10-60) IU/L Alkaline Phosphatase 122 H (42-121) IU/L Total Protein 6.7 (6.7-8.2) g/dL Albumin 3.1 L (3.2-5.5) g/dL Globulin 3.6 (2.1-4.2) g/dL Albumin/Globulin Ratio 0.9 L (1.0-2.2) Last Dose Date 10/10/17 Last Dose Time 1800 Vancomycin Trough 18.2 H (5.0-15.0) ug/mL - Diagnostic Imaging Diagnostic Imaging Results: positive: Final report reviewed Assessment/Plan - Problem List (1) Pneumonia Impression: A 2-view chest x-ray was completed at the time of admission which revealed right opacities and mild interstitial prominence of the lung bases. Given the presenting symptoms and recent travel, patient will be treated for right lung pneumonia. Patient admits to productive, thick sputum with increased cough. The first sputum sample shows too much oral ann, so a second sample is growing. A probiotic was added today to prevent GI diarrhea. Plan: Continue Cefepime and Vancomycin IV and wait for sputum cultures. Qualifiers: Pneumonia type: due to unspecified organism Laterality: right Lung location: middle lobe of lung Qualified Code(s): J18.1 - Lobar pneumonia, unspecified organism (2) Dyspnea on exertion Impression: Patient notes a dramatic reduction in length of ambulation before he becomes too winded to continue and needs to stop his activity before walking farther. This has been ongoing for at least the past several months, now more progressive leading to presentation to our ED. Musinex was prescribed for excess, thick sputum. Plan: Continue to monitor vital signs and use oxygen for SOB, nebulizers and incentive spirometry. (3) Cough productive of purulent sputum Impression: Patient states that the sputum production with ongoing cough is one of the main reasons he came to the ED. He denies hemoptysis. He also admits to ongoing bronchitis since [facility] had smoke from [place] in April of 2017. Plan: Continue to encourage incentive spirometer and monitor consistency and type of sputum. Waiting for second sputum culture results. (4) Systolic congestive heart failure, NYHA class 3 Impression: Patient's knife grinder is Dr. Osman. He has an extensive cardiac history including; CAD, CABG, CABG revision, [employer] AICD located in left upper chest, and hypertension. A new echocardiogram from 10/10/17 showed an improved EF of 25-30%, severe global hypokinesis of LV contractility, severe RV enlargement, severe LV enlargement, severe RA enlargement, mild aortic stenosis , mild aortic regurgitation, moderate mitral regurgitation, and elevated right heart pressures at 70mmHg which is expected to decreased after acute lung infection back to baseline of 50mmHg. Plan: IV lasix is scheduled. Qualifiers: Congestive heart failure chronicity: acute on chronic Qualified Code(s): I50.23 - Acute on chronic systolic (congestive) heart failure
[2017-10-11] MEDS ORDERED: POTASSIUM CHLORIDE 20 MEQ TABLET PO SCH (15:00)
[2017-10-11] MEDS: SACCHAROMYCES BOULARDII 250 MG CAPSULE PO SCH ×2 (16:28→17:36)
[2017-10-11] MEDS: POTASSIUM CHLORIDE 20 MEQ TABLET PO SCH (16:28)
[2017-10-11] MEDS: ATORVASTATIN 40 MG TABLET PO SCH (21:18)
[2017-10-12] MEDS: guaiFENesin/CODEINE 5 ML UDC PO PRN ×2 (00:36→20:45)
[2017-10-12] MEDS: CEFEPIME 2 GM in SODIUM CHLORIDE 0.9% MINIBAG 100 ML IV SCH ×2 (04:28→16:54)
[2017-10-12] MEDS: SODIUM CHLORIDE FLUSH 0.9% 10 ML SYRINGE IVP SCH ×2 (04:31→19:42)
[2017-10-12] MEDS: methylPREDNISolone SUCCINATE 40 MG/ML VIAL IVP SCH (05:21)
[2017-10-12] MEDS: SODIUM CHLORIDE FLUSH 0.9% 10 ML SYRINGE IVP PRN ×3 (05:21→16:53)
[2017-10-12] MEDS: VANCOMYCIN INJ 1 GM in SODIUM CHLORIDE 0.9% 250 ML IV SCH ×2 (05:56→17:45)
[2017-10-12] MEDS: PANTOPRAZOLE 40 MG TABLET PO SCH (05:57)
[2017-10-12 06:21] LABS: BASOPHILS % (AUTO) 0.1 %; HGB - HEMOGLOBIN 12.1 g/dL (14.0-18.0); LYMPHOCYTES # (AUTO) 0.5 10^3/uL (1.5-3.5); LYMPHOCYTES % (AUTO) 3.6 %; MEAN CORPUSCULAR HEMOGLOBIN 33.2 pg (27.0-31.0); MEAN CORPUSCULAR HGB CONC 32.8 g/dL (32.0-36.0); MEAN CORPUSCULAR VOLUME 101.4 fL (80.0-94.0); MEAN PLATELET VOLUME 9.3 fL (7.4-11.4); MONOCYTES # (AUTO) 1.3 10^3/uL (0.0-1.0); MONOCYTES % (AUTO) 9.5 %; NEUTROPHILS # (AUTO) 12.2 10^3/uL (1.5-6.6); NEUTROPHILS % (AUTO) 86.8 %; PLT - PLATELET COUNT 156 10^3/uL (130-450); RED BLOOD COUNT 3.65 10^6/uL (4.70-6.10); RED CELL DISTRIBUTION WIDTH 17.6 % (12.0-15.0); WHITE BLOOD COUNT 14.1 x10^3/uL (4.8-10.8)
[2017-10-12 06:24] LABS: ALBUMIN 3.2 g/dL (3.2-5.5); ALBUMIN/GLOBULIN RATIO 0.9 (1.0-2.2); BILIRUBIN,TOTAL 1.7 mg/dL (0.2-1.0); CALCIUM 8.6 mg/dL (8.5-10.3); CREATININE 1.3 mg/dL (0.6-1.2); TOTAL PROTEIN 6.6 g/dL (6.7-8.2)
[2017-10-12] MEDS ORDERED: POTASSIUM CHLORIDE 20 MEQ TABLET PO ONE (08:15)
[2017-10-12] MEDS: FUROSEMIDE 40 MG/4 ML VIAL IVP SCH (08:52)
[2017-10-12] MEDS: METOPROLOL SUCCINATE 50 MG TABLET PO SCH (08:56)
[2017-10-12] MEDS: POLYETHYLENE GLYCOL 3350 17 GM PACKET PO SCH (08:56)
[2017-10-12] MEDS: POTASSIUM CHLORIDE 20 MEQ TABLET PO SCH (08:57)
[2017-10-12] MEDS: ASPIRIN EC 81 MG TABLET PO SCH (08:57)
[2017-10-12] MEDS: guaiFENesin 600 MG TABLET PO SCH ×2 (08:57→20:45)
[2017-10-12] MEDS: SACCHAROMYCES BOULARDII 250 MG CAPSULE PO SCH ×2 (08:57→16:53)
[2017-10-12] MEDS: RIVAROXABAN 10 MG TABLET PO SCH (08:58)
[2017-10-12] MEDS: DIGOXIN 125 MCG TABLET PO SCH (08:58)
[2017-10-12] MEDS: LEVALBUTEROL 1.25 MG/3 ML NEB INH PRN ×2 (10:00→15:45)
[2017-10-12] MEDS: BENZOCAINE/MENTHOL LOZENGE MM PRN ×3 (12:30→19:23)
--- NOTE | 2017-10-12 12:59 | PROVIDER PROGRESS NOTE ---
Subjective - Prog Note Date Prog Note Date: 10/12/17 - Subjective Pt reports feeling: Improved Subjective: pt state he feel better than before, breath is better. No chest pain, cough, fever, chill. Current Medications - Current Medications Current Medications: Active Medications Aspirin (Ecotrin) 81 mg PO DAILY [facility] Last Admin: 10/12/17 08:57 Dose: 81 mg Atorvastatin Calcium (Lipitor) 80 mg PO QPM [facility] Last Admin: 10/11/17 21:18 Dose: 80 mg Digoxin (Lanoxin) 250 mcg PO DAILY [facility] Last Admin: 10/12/17 08:58 Dose: 250 mcg Guaifenesin (Mucinex) 600 mg PO BID [facility] Last Admin: 10/12/17 08:57 Dose: 600 mg Guaifenesin/Codeine Phosphate (Robitussin Ac) 5 ml PO Q6HR PRN PRN Reason: Cough Last Admin: 10/12/17 00:36 Dose: 5 ml Vancomycin HCl 1 gm/ Sodium (Chloride) 250 mls @ 167 mls/hr IV Q12H [facility] Last Infusion: 10/12/17 09:27 Dose: Infused Cefepime HCl 2 gm/ Sodium (Chloride) 100 mls @ 200 mls/hr IV Q12H [facility] Last Infusion: 10/12/17 07:44 Dose: Infused Levalbuterol HCl (Xopenex) 1.25 mg INH RTQ4H PRN PRN Reason: WHEEZING/SOB Last Admin: 10/12/17 10:00 Dose: 1.25 mg Metoprolol Succinate (Toprol Xl) 50 mg PO DAILY [facility] Last Admin: 10/12/17 08:56 Dose: 50 mg Pantoprazole Sodium (Protonix) 40 mg PO QDAC [facility] Last Admin: 10/12/17 05:57 Dose: 40 mg Polyethylene Glycol (Miralax) 17 gm PO DAILY [facility] Last Admin: 10/12/17 08:56 Dose: 17 gm Potassium Chloride (K-Dur) 40 meq PO DAILYWM [facility] Last Admin: 10/12/17 08:57 Dose: 40 meq Prednisone (Deltasone) 20 mg PO DAILYWM [facility] Rivaroxaban (Xarelto) 20 mg PO DAILY [facility] Last Admin: 10/12/17 08:58 Dose: 20 mg Saccharomyces Boulardii (Florastor) 500 mg PO BIDWM [facility] Last Admin: 10/12/17 08:57 Dose: 500 mg Sodium Chloride (Normal Saline Flush 0.9%) 10 ml IVP PRN PRN PRN Reason: NEEDED PER PROVIDER ORDERS Last Admin: 10/12/17 05:56 Dose: 10 ml Sodium Chloride (Normal Saline Flush 0.9%) 10 ml IVP Q8HR [facility] Last Admin: 10/12/17 04:31 Dose: 10 ml Throat Lozenges (Cepacol) 1 lozenge MM Q2HR PRN PRN Reason: Mouth Sore Pain Torsemide (Torsemide) 10 mg PO DAILY [facility] Candesartan Cilexetil [Atacand] 4 mg PO DAILY 11/06/13 Digoxin [Lanoxin] 250 mcg PO DAILY 11/06/13 Montelukast [Singulair] 10 mg PO QPM 11/06/13 Rosuvastatin [Crestor] 40 mg PO QPM 11/06/13 Aspirin [Aspir-Low] 81 mg PO DAILY 05/31/16 Ciclesonide [Omnaris] 1 spray BIRD DAILY PRN 05/31/16 Krill/Om-3/Dha/Epa/Phospho/Ast [[place]-3 Krill Oil 300 mg Sfgl] 300 mg PO DAILY 05/31/16 Rabeprazole Sodium [Aciphex] 20 mg PO QDAC 05/31/16 Vitamin E 1,000 units PO DAILY 05/31/16 Rivaroxaban [Xarelto] 20 mg PO DAILY 07/29/16 Cephalexin [Keflex] 500 mg PO Q6H 10/09/17 Docusate Sodium 100 mg PO DAILY 10/09/17 Glucosamine/Chondro Bradley A [Glucosamine-Chondroitin Tab] 2 tab PO DAILY 10/09/17 Metoprolol Succinate 50 mg PO DAILY 10/09/17 Multivitamin [Theragran] 1 tab PO DAILY 10/09/17 Sildenafil Citrate [Viagra] 50 - 100 mg PO PRN PRN 10/09/17 Objective - Vital Signs/Intake & Output Reviewed Vital Signs: Yes Vital Signs: Vital Signs x48h Temp Pulse Pulse Resp BP Pulse Ox 10/12/17 10:00 67 20 10/12/17 08:25 36.5 C 76 20 144/69 H 95 Intake & Output: Intake & Output 10/09/17 10/10/17 10/11/17 10/12/17 23:59 23:59 23:59 23:59 Intake Total 1805.552 8686.333 3126 1490 Output Total 200 5130 5100 850 Balance 1011.930 2072.333 -7586 640 - Objective General Appearance: positive: No acute distress, Alert. negative: Lethargic Eyes Bilateral: positive: Normal inspection, PERRL, No lid inflammation, Conjunctivae nml ENT: positive: ENT inspection nml, Pharynx nml, No signs of dehydration. negative: Purulent nasal drainage, Pharyngeal erythema, Oral lesions Neck: positive: Nml inspection, Thyroid nml, No JVD, Trachea midline. negative : Thyromegaly, Lymphadenopathy (R), Lymphadenopathy (L), Stiff neck, Carotid bruit, Swelling/bruising, Tracheal deviation Respiratory: positive: Chest non-tender, No respiratory distress, Rhonchi. negative: Wheezes, Rales Cardiovascular: positive: Regular rate & rhythm, No murmur, No gallop, Systolic murmur. negative: Irregularly irregular, Extrasystoles, Tachycardia, Bradycardia, Diastolic murmur Peripheral Pulses: 2+ Radial (R), 2+ Radial (L), 2+ Dorsalis pedis (R), 2+ Dorsalis pedis (L) Abdomen: positive: Non-tender, No organomegaly, Nml bowel sounds, No distention. negative: Tenderness, Guarding, Rebound Back: positive: Nml inspection. negative: CVA tenderness (R), CVA tenderness (L ) Skin: positive: Color nml, No rash, Warm, Dry. negative: Cyanosis, Diaphoresis , Pallor Extremities: positive: Non-tender, Full ROM, Nml appearance. negative: Calf tenderness, Joint swelling, Diana's sign/cords - Lab Results Fish Bones: 10/12/17 05:47 10/12/17 05:47 Other Labs: Lab Results x24hrs 10/12/17 10/12/17 10/12/17 Range/Units 08:13 05:47 05:47 WBC 14.1 H (4.8-10.8) x10^3/uL RBC 3.65 L (4.70-6.10) 10^6/uL Hgb 12.1 L (14.0-18.0) g/dL Hct 37.0 L (42.0-52.0) % MCV 101.4 H (80.0-94.0) fL MCH 33.2 H (27.0-31.0) pg MCHC 32.8 (32.0-36.0) g/dL RDW 17.6 H (12.0-15.0) % Plt Count 156 (130-450) 10^3/uL MPV 9.3 (7.4-11.4) fL Neut # 12.2 H (1.5-6.6) 10^3/uL Lymph # 0.5 L (1.5-3.5) 10^3/uL [place] # 1.3 H (0.0-1.0) 10^3/uL Eos # 0.0 (0.0-0.7) 10^3/uL Baso # 0.0 (0.0-0.1) 10^3/uL Absolute Nucleated RBC 0.01 x10^3/uL Nucleated RBC % 0.0 /100WBC Sodium 136 (135-145) mmol/L Potassium 3.4 L (3.5-5.0) mmol/L Chloride 98 L (101-111) mmol/L Carbon Dioxide 26 (21-32) mmol/L Anion Gap 12.0 (6-13) BUN 28 H (6-20) mg/dL Creatinine 1.3 H (0.6-1.2) mg/dL Estimated GFR (MDRD) 53 L (>89) Glucose 143 H (70-100) mg/dL Lactic Acid 1.8 (0.5-2.2) mmol/L Calcium 8.6 (8.5-10.3) mg/dL Total Bilirubin 1.7 H (0.2-1.0) mg/dL AST 111 H (10-42) IU/L ALT 91 H (10-60) IU/L Alkaline Phosphatase 119 (42-121) IU/L Total Protein 6.6 L (6.7-8.2) g/dL Albumin 3.2 (3.2-5.5) g/dL Globulin 3.4 (2.1-4.2) g/dL Albumin/Globulin Ratio 0.9 L (1.0-2.2) Assessment/Plan - Problem List (1) Pneumonia Impression: (1) Pneumonia Impression: pt state he feel better, breath is better. Pt had elevated WBC, may be caused by given Steroids continue Vancomycin, Cefepime respiratory culture unremarkable. A 2-view chest x-ray was completed at the time of admission which revealed right opacities and mild interstitial prominence of the lung bases. Given the presenting symptoms and recent travel, patient will be treated for right lung pneumonia. Patient admits to productive, thick sputum with increased cough. The first sputum sample shows too much oral ann, so a second sample is growing. A probiotic was added today to prevent GI diarrhea. Plan: Continue Cefepime and Vancomycin IV and wait for sputum cultures. (2) Dyspnea on exertion Impression: pt feel better, walk better. continue current treatment Patient notes a dramatic reduction in length of ambulation before he becomes too winded to continue and needs to stop his activity before walking farther. This has been ongoing for at least the past several months, now more progressive leading to presentation to our ED. Musinex was prescribed for excess, thick sputum. Plan: Continue to monitor vital signs and use oxygen for SOB, nebulizers and incentive spirometry. (3) Cough productive of purulent sputum Impression: pt state he has no cough today, feel better sputum culture preliminary unremarkable Patient states that the sputum production with ongoing cough is one of the main reasons he came to the ED. He denies hemoptysis. He also admits to ongoing bronchitis since [facility] had smoke from [place] in April of 2017. Plan: Continue to encourage incentive spirometer and monitor consistency and type of sputum. Waiting for second sputum culture results. (4) Systolic congestive heart failure, NYHA class 3 Impression: pt did not have Lasix meds in his home medication list. But pt state he used to take Forsemide. Switch IV lasix to Forsemide, plan for discharge on tomorrow. 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 He has an extensive cardiac history including; CAD, CABG, CABG revision, [employer] AICD located in left upper chest, and hypertension. A new echocardiogram from 10/10/17 showed an improved EF of 25-30%, severe global hypokinesis of LV contractility, severe RV enlargement, severe LV enlargement, severe RA enlargement, mild aortic stenosis , mild aortic regurgitation, moderate mitral regurgitation, and elevated right heart pressures at 70mmHg which is expected to decreased after acute lung infection back to baseline of 50mmHg. Plan: IV lasix is scheduled. Qualifiers: Pneumonia type: due to unspecified organism Laterality: right Lung location: middle lobe of lung Qualified Code(s): J18.1 - Lobar pneumonia, unspecified organism
[2017-10-12] MEDS: ATORVASTATIN 40 MG TABLET PO SCH (20:45)
[2017-10-13] MEDS: CEFEPIME 2 GM in SODIUM CHLORIDE 0.9% MINIBAG 100 ML IV SCH ×2 (04:54→19:26)
[2017-10-13] MEDS: SODIUM CHLORIDE FLUSH 0.9% 10 ML SYRINGE IVP SCH ×3 (04:54→20:11)
[2017-10-13 05:34] LABS: BASOPHILS % (AUTO) 0.2 %; HGB - HEMOGLOBIN 12.4 g/dL (14.0-18.0); LYMPHOCYTES % (AUTO) 6.7 %; MEAN CORPUSCULAR HGB CONC 32.7 g/dL (32.0-36.0); MEAN CORPUSCULAR VOLUME 100.9 fL (80.0-94.0); MEAN PLATELET VOLUME 9.7 fL (7.4-11.4); MONOCYTES % (AUTO) 14.2 %; NEUTROPHILS % (AUTO) 78.9 %; PLT - PLATELET COUNT 150 10^3/uL (130-450); RED BLOOD COUNT 3.76 10^6/uL (4.70-6.10); RED CELL DISTRIBUTION WIDTH 16.9 % (12.0-15.0); WHITE BLOOD COUNT 13.5 x10^3/uL (4.8-10.8)
[2017-10-13 05:42] LABS: ALBUMIN 2.9 g/dL (3.2-5.5); ALBUMIN/GLOBULIN RATIO 0.8 (1.0-2.2); BILIRUBIN,TOTAL 1.4 mg/dL (0.2-1.0); CALCIUM 8.7 mg/dL (8.5-10.3); CREATININE 1.4 mg/dL (0.6-1.2); TOTAL PROTEIN 6.5 g/dL (6.7-8.2)
[2017-10-13] MEDS: VANCOMYCIN INJ 1 GM in SODIUM CHLORIDE 0.9% 250 ML IV SCH ×2 (05:42→20:07)
[2017-10-13] MEDS: PANTOPRAZOLE 40 MG TABLET PO SCH (05:43)
[2017-10-13] MEDS: SODIUM CHLORIDE FLUSH 0.9% 10 ML SYRINGE IVP PRN ×2 (05:43→20:11)
[2017-10-13 05:47] LABS: ABNORMAL LYMPHS % (MANUAL) 0 %
[2017-10-13 06:03] LABS: BAND NEUTROPHILS % (MANUAL) 6 %; DIFFERENTIAL COMMENT MANUAL DIFFERENTIAL; LYMPHOCYTES # (MANUAL) 1.4 10^3/uL (1.5-3.5); LYMPHOCYTES % (MANUAL) 10 %; MONOCYTES # (MANUAL) 1.6 10^3/uL (0.0-1.0); NEUTROPHILS # (MANUAL) 10.5 10^3/uL (1.5-6.6); NEUTROPHILS % (MANUAL) 72 %; PLATELET ESTIMATE, MANUAL NORMAL (130-450,000) (NORMAL); RBC MORPHOLOGY (MULTIPLE) NORMAL APPEARANCE (NORMAL)
[2017-10-13] MEDS ORDERED: predniSONE 20 MG TABLET PO SCH (08:00)
[2017-10-13] MEDS: RIVAROXABAN 10 MG TABLET PO SCH (10:24)
[2017-10-13] MEDS: guaiFENesin 600 MG TABLET PO SCH ×2 (10:25→20:07)
[2017-10-13] MEDS: TORSEMIDE 20 MG TABLET PO SCH (10:25)
[2017-10-13] MEDS: SACCHAROMYCES BOULARDII 250 MG CAPSULE PO SCH ×2 (10:25→16:38)
[2017-10-13] MEDS: DIGOXIN 125 MCG TABLET PO SCH (10:26)
[2017-10-13] MEDS: POTASSIUM CHLORIDE 20 MEQ TABLET PO SCH (10:26)
[2017-10-13] MEDS: METOPROLOL SUCCINATE 50 MG TABLET PO SCH (10:27)
[2017-10-13] MEDS: ASPIRIN EC 81 MG TABLET PO SCH (10:27)
[2017-10-13] MEDS: BENZOCAINE/MENTHOL LOZENGE MM PRN (10:28)
[2017-10-13] MEDS: POLYETHYLENE GLYCOL 3350 17 GM PACKET PO SCH (10:29)
[2017-10-13] MEDS ORDERED: SODIUM CHLORIDE 0.65% NASAL SPRAY NAS PRN (11:06)
[2017-10-13] MEDS: LEVALBUTEROL 1.25 MG/3 ML NEB INH PRN ×2 (11:29→21:15)
[2017-10-13] MEDS: ATORVASTATIN 40 MG TABLET PO SCH (20:07)
[2017-10-13] MEDS: guaiFENesin/CODEINE 5 ML UDC PO PRN (21:58)
[2017-10-14] MEDS: CEFEPIME 2 GM in SODIUM CHLORIDE 0.9% MINIBAG 100 ML IV SCH (04:00)
[2017-10-14] MEDS: SODIUM CHLORIDE FLUSH 0.9% 10 ML SYRINGE IVP PRN (04:07)
[2017-10-14] MEDS: VANCOMYCIN INJ 1 GM in SODIUM CHLORIDE 0.9% 250 ML IV SCH (04:45)
[2017-10-14 06:15] LABS: BASOPHILS % (AUTO) 0.4 %; EOSINOPHILS % (AUTO) 0.1 %; HGB - HEMOGLOBIN 12.4 g/dL (14.0-18.0); LYMPHOCYTES % (AUTO) 10.4 %; MEAN CORPUSCULAR HEMOGLOBIN 33.2 pg (27.0-31.0); MEAN CORPUSCULAR VOLUME 100.6 fL (80.0-94.0); MEAN PLATELET VOLUME 9.8 fL (7.4-11.4); MONOCYTES % (AUTO) 14.6 %; NEUTROPHILS % (AUTO) 74.5 %; PLT - PLATELET COUNT 144 10^3/uL (130-450); RED BLOOD COUNT 3.72 10^6/uL (4.70-6.10); RED CELL DISTRIBUTION WIDTH 16.8 % (12.0-15.0)
[2017-10-14 06:24] LABS: ALBUMIN 2.8 g/dL (3.2-5.5); ALBUMIN/GLOBULIN RATIO 0.8 (1.0-2.2); BILIRUBIN,TOTAL 1.6 mg/dL (0.2-1.0); CALCIUM 8.4 mg/dL (8.5-10.3); CREATININE 1.2 mg/dL (0.6-1.2); TOTAL PROTEIN 6.2 g/dL (6.7-8.2)
[2017-10-14 06:28] LABS: ABNORMAL LYMPHS % (MANUAL) 0 %
[2017-10-14 06:52] LABS: BAND NEUTROPHILS % (MANUAL) 1 %; LYMPHOCYTES # (MANUAL) 0.8 10^3/uL (1.5-3.5); LYMPHOCYTES % (MANUAL) 7 %; MONOCYTES # (MANUAL) 1.3 10^3/uL (0.0-1.0); NEUTROPHILS # (MANUAL) 8.9 10^3/uL (1.5-6.6); NEUTROPHILS % (MANUAL) 80 %; PLATELET ESTIMATE, MANUAL NORMAL (130-450,000) (NORMAL); RBC MORPHOLOGY (MULTIPLE) NORMAL APPEARANCE (NORMAL)
[2017-10-14 06:53] LABS: DIFFERENTIAL COMMENT MANUAL DIFFERENTIAL
[2017-10-14] MEDS ORDERED: predniSONE 5 MG TABLET PO SCH (08:00)
[2017-10-14 08:20] VITALS: BP 137/90
[2017-10-14] MEDS: SODIUM CHLORIDE FLUSH 0.9% 10 ML SYRINGE IVP SCH ×2 (08:35→13:48)
[2017-10-14] MEDS: guaiFENesin 600 MG TABLET PO SCH (09:33)
[2017-10-14] MEDS: PANTOPRAZOLE 40 MG TABLET PO SCH (09:33)
[2017-10-14] MEDS: POTASSIUM CHLORIDE 20 MEQ TABLET PO SCH (09:33)
[2017-10-14] MEDS: METOPROLOL SUCCINATE 50 MG TABLET PO SCH (09:34)
[2017-10-14] MEDS: RIVAROXABAN 10 MG TABLET PO SCH (09:34)
[2017-10-14] MEDS: TORSEMIDE 20 MG TABLET PO SCH (09:34)
[2017-10-14] MEDS: DIGOXIN 125 MCG TABLET PO SCH (09:34)
[2017-10-14] MEDS: SACCHAROMYCES BOULARDII 250 MG CAPSULE PO SCH (09:34)
[2017-10-14] MEDS: ASPIRIN EC 81 MG TABLET PO SCH (09:35)
[2017-10-14] MEDS: POLYETHYLENE GLYCOL 3350 17 GM PACKET PO SCH (09:35)
[2017-10-14] MEDS: LEVALBUTEROL 1.25 MG/3 ML NEB INH PRN (09:56)
--- NOTE | 2017-10-14 12:18 | Discharge Plan ---
Discharge Plan Disposition: 01 Home, Self Care Condition: Stable Prescriptions: Doxycycline Hyclate 100 mg PO DAILY #7 tablet Diet: Cardiac Activity Restrictions: Activity as Tolerated Shower Restrictions: No Weight Bearing: Full Weight Instruction Topics: Pneumonia, Doxycycline tablets or capsules Additional Instructions or Follow Up instructions: May follow up PCP in 3-4 days and have CXR in one week, follow up director investor relations as the schedule No Smoking: If you smoke, Please STOP! Call for help. Follow-up with: Tonio Edmondson MD [Primary Care Provider] -
--- NOTE | 2017-10-14 12:37 | DISCHARGE SUMMARY ---
Discharge Summary Discharge Date: 10/14/17 Discharging Provider: CONRAD Primary Care Provider: Tonio Chi Condition at Discharge: Stable Discharge Disposition: 01 Home, Self Care Discharge Facility Name: home - DIAGNOSES Admission Diagnoses: (1) Pneumonia (2) Dyspnea on exertion (3) Cough productive of purulent sputum (4) Systolic congestive heart failure, NYHA class 3 Discharge Diagnoses with Status of Each Condition: (1) Pneumonia after treatment, pt's O2 Sat is 97% on room air. No fever, chill, cough. Slight elevated WBC may be caused by steroid, continue antibiotics course (2) Dyspnea on exertion great improved (3) Cough productive of purulent sputum resolved (4) Systolic congestive heart failure, NYHA class 3 stable, pt will visit his counter hop in next day - HPI History of Present Illness: please refer from Enriqueta's HPI as the following: Isreal Brown is an elderly 82-year old white male with a past medical history of CHF, CAD, atrial fibrillation, sleep apnea who is compliant about use , CABG x2, AICD to left upper chest, bronchitis, and erectile dysfunction. He presented to the ED today after having copious, thick sputum, increased SOB and profound decreased exercise tolerance. He admits to going on a recent cruise that deported from [place] and he generally felt healthy, but 2 days ago he began to have generalized fatigue. He went to an ED in [place] in a neighborhood that he used to live in. He was given Lasix after discovering increased fluid, which may have been from increased salt consumption while on the cruise. In April of 2017, [facility] was affected by heavy smoke from [place] and he was diagnosed with bronchitis. Since that time, the patient notes that his breathing has not been the same. He is nearing his Check-Cap AICD battery replacement and he believes this may be in the next ~90 days as he keeps getting alarms from the device. He will be admitted to inpatient for further treatment of pneumonia with IV antibiotics and a work up to the possible cause of his progressive exercise intolerance and increased shortness of breath. He will be monitored on telemetry, and an echocardiogram will be ordered. - HOSPITAL COURSE Hospital Course: pt was admitted for pneumonia. pt was treated with vancomycin and zosyn. Pt's chronic asthma was temporally treated with Steroid and INH. after treatment, Pt' s O2 sats is 97% at room air. no fever, chill, cough. Pt was prescribed antibiotics to continue finish the antibiotics treatment course. - ALLERGIES Allergies/Adverse Reactions: Allergies Allergy/AdvReac Type Severity Reaction Status Date / Time Penicillins Allergy Unknown unk Verified 10/09/17 08:12 - MEDICATIONS Home Medications: Ambulatory Orders Medication Instructions Recorded Confirmed Candesartan Cilexetil [Atacand] 4 mg PO DAILY 11/06/13 10/09/17 Digoxin [Lanoxin] 250 mcg PO DAILY 11/06/13 10/09/17 Montelukast [Singulair] 10 mg PO QPM 11/06/13 10/09/17 Rosuvastatin [Crestor] 40 mg PO QPM 11/06/13 10/09/17 Aspirin [Aspir-Low] 81 mg PO DAILY 05/31/16 10/09/17 Ciclesonide [Omnaris] 1 spray BIRD DAILY PRN 05/31/16 10/09/17 Krill/Om-3/Dha/Epa/Phospho/Ast 300 mg PO DAILY 05/31/16 10/09/17 [Start-3 Krill Oil 300 mg Sfgl] Rabeprazole Sodium [Aciphex] 20 mg PO QDAC 05/31/16 10/09/17 Vitamin E 1,000 units PO DAILY 05/31/16 10/09/17 Rivaroxaban [Xarelto] 20 mg PO DAILY 07/29/16 10/09/17 Docusate Sodium 100 mg PO DAILY 10/09/17 10/09/17 Glucosamine/Chondro Bradley A 2 tab PO DAILY 10/09/17 10/09/17 [Glucosamine-Chondroitin Tab] Metoprolol Succinate 50 mg PO DAILY 10/09/17 10/09/17 Multivitamin [Theragran] 1 tab PO DAILY 10/09/17 10/09/17 Sildenafil Citrate [Viagra] 50 - 100 mg PO PRN PRN 10/09/17 10/09/17 Doxycycline Hyclate 100 mg PO DAILY #7 tablet 10/14/17 - PHYSICAL EXAM AT DISCHARGE General Appearance: positive: No acute distress, Alert, Mild distress. negative : Lethargic Eyes Bilateral: positive: PERRL, No lid inflammation, Conjunctivae nml ENT: positive: ENT inspection nml, Pharynx nml, No signs of dehydration. negative: Purulent nasal drainage, Pharyngeal erythema, Oral lesions, Dry mucous membranes Neck: positive: Nml inspection, Thyroid nml, No JVD, Trachea midline. negative : Thyromegaly, Lymphadenopathy (R), Lymphadenopathy (L), Stiff neck, Carotid bruit, Swelling/bruising, Tracheal deviation Respiratory: positive: Chest non-tender, No respiratory distress, Breath sounds nml. negative: Wheezes, Rales, Rhonchi Cardiovascular: positive: Regular rate & rhythm, No murmur, No gallop. negative : Irregularly irregular, Extrasystoles, Tachycardia, Bradycardia, Systolic murmur, Diastolic murmur Peripheral Pulses: positive: 2+ Abdomen: positive: Non-tender, No organomegaly, Nml bowel sounds, No distention. negative: Tenderness, Guarding, Rebound Back: positive: Nml inspection. negative: CVA tenderness (R), CVA tenderness (L ) Skin: positive: Color nml, No rash, Warm, Dry. negative: Cyanosis, Diaphoresis , Pallor Extremities: positive: Non-tender, Full ROM, Nml appearance. negative: Calf tenderness, Joint swelling, Diana's sign/cords Neurologic/Psychiatric: positive: Oriented x3, Motor nml, Sensation nml, Mood/ affect nml. negative: Sensory loss, Facial droop, Slurred/abnml speech, Depressed mood/affect - LABS Result Diagrams: 10/14/17 05:38 10/14/17 05:38 - FOLLOW UP Follow Up: May follow up PCP in 3-4 days and have CXR in one week, follow up counter hop as the schedule. Resume home medication regime, add doxycycline daily for another 7 days - TIME SPENT Time Spent in Discharge (Minutes): 50
--- NOTE | 2017-10-14 12:38 | PROVIDER PROGRESS NOTE ---
Subjective - Prog Note Date Prog Note Date: 10/13/17 - Subjective Pt reports feeling: Improved Objective - Vital Signs/Intake & Output Vital Signs: Vital Signs x48h Temp Pulse Pulse Resp BP Pulse Ox 10/14/17 10:00 80 22 10/14/17 08:18 36.4 C L 71 20 137/90 H 96 Intake & Output: Intake & Output 10/11/17 10/12/17 10/13/17 10/14/17 23:59 23:59 23:59 23:59 Intake Total 3126 3150 2580 910 Output Total 5100 1200 800 600 Balance -1974 1950 1780 310 - Lab Results Fish Bones: 10/14/17 05:38 10/14/17 05:38 Other Labs: Lab Results x24hrs 10/14/17 10/14/17 Range/Units 05:38 05:38 WBC 11.0 H (4.8-10.8) x10^3/uL RBC 3.72 L (4.70-6.10) 10^6/uL Hgb 12.4 L (14.0-18.0) g/dL Hct 37.5 L (42.0-52.0) % MCV 100.6 H (80.0-94.0) fL MCH 33.2 H (27.0-31.0) pg MCHC 33.0 (32.0-36.0) g/dL RDW 16.8 H (12.0-15.0) % Plt Count 144 (130-450) 10^3/uL MPV 9.8 (7.4-11.4) fL Neut # Not Reportable Lymph # Not Reportable [place] # Not Reportable Eos # Not Reportable Baso # Not Reportable Absolute Nucleated RBC Not Reportable Total Counted 100 Band Neuts % (Manual) 1 (0 - 10) % Abnorm Lymph % (Manual) 0 % Nucleated RBC % Not Reportable Neutrophils # (Manual) 8.9 H (1.5-6.6) 10^3/uL Lymphocytes # (Manual) 0.8 L (1.5-3.5) 10^3/uL Monocytes # (Manual) 1.3 H (0.0-1.0) 10^3/uL Eosinophils # (Manual) 0.0 (0-0.7) 10^3/uL Basophils # (Manual) 0.0 (0-0.1) 10^3/uL Differential Comment MANUAL DIFFERENTIAL Platelet Estimate NORMAL (130-450,000) (NORMAL) RBC Morph Micro Appear NORMAL APPEARANCE (NORMAL) Sodium 137 (135-145) mmol/L Potassium 4.0 (3.5-5.0) mmol/L Chloride 100 L (101-111) mmol/L Carbon Dioxide 26 (21-32) mmol/L Anion Gap 11.0 (6-13) BUN 31 H (6-20) mg/dL Creatinine 1.2 (0.6-1.2) mg/dL Estimated GFR (MDRD) 58 L (>89) Glucose 100 (70-100) mg/dL Calcium 8.4 L (8.5-10.3) mg/dL Total Bilirubin 1.6 H (0.2-1.0) mg/dL AST 108 H (10-42) IU/L ALT 144 H (10-60) IU/L Alkaline Phosphatase 114 (42-121) IU/L Total Protein 6.2 L (6.7-8.2) g/dL Albumin 2.8 L (3.2-5.5) g/dL Globulin 3.4 (2.1-4.2) g/dL Albumin/Globulin Ratio 0.8 L (1.0-2.2) Assessment/Plan - Problem List (1) Pneumonia Qualifiers: Pneumonia type: due to unspecified organism Laterality: right Lung location: middle lobe of lung Qualified Code(s): J18.1 - Lobar pneumonia, unspecified organism
== END 2017-10-14 14:32 | disposition home or self-care (01) | DRG 193 ==
LOC: ED 08:06 → MS2 13:18
PROVIDERS: ADMIT Nurse Practitioner; ATTEND Nurse Practitioner Gerontology
DX: J18.1 Lobar pneumonia, unspecified organism (principal); I50.23 Acute on chronic systolic (congestive) heart failure; I11.0 Hypertensive heart disease with heart failure; J45.909 Unspecified asthma, uncomplicated; I25.10 Atherosclerotic heart disease of native coronary artery without angina pectoris; I08.0 Rheumatic disorders of both mitral and aortic valves; I48.91 Unspecified atrial fibrillation; G47.30 Sleep apnea, unspecified; Z95.1 Presence of aortocoronary bypass graft; Z95.810 Presence of automatic (implantable) cardiac defibrillator; Z88.0 Allergy status to penicillin; Z79.01 Long term (current) use of anticoagulants; Z79.82 Long term (current) use of aspirin
CPT/HCPCS: 36415; 71046; 80048; 80053; 80162; 82803; 83036; 83540; 83605; 83690; 83735; 83880; 84443; 84466; 84484; 85025; 85651; 87070; 87205; 87275; 87276; 93005; 93306; 94640; 96374; 99283; 99284; 99285

== ENCOUNTER 2018-03-22 10:05 | Outpatient (CLI) | payer MEDICARE, OTHER ==
[2018-03-22 13:20] LABS: BASOPHILS # (AUTO) 0.1 10^3/uL (0.0-0.1); BASOPHILS % (AUTO) 0.8 %; EOSINOPHILS # (AUTO) 0.2 10^3/uL (0.0-0.7); EOSINOPHILS % (AUTO) 2.2 %; HGB - HEMOGLOBIN 13.9 g/dL (14.0-18.0); LYMPHOCYTES # (AUTO) 1.1 10^3/uL (1.5-3.5); LYMPHOCYTES % (AUTO) 14.3 %; MEAN CORPUSCULAR HEMOGLOBIN 35.4 pg (27.0-31.0); MEAN CORPUSCULAR HGB CONC 32.8 g/dL (32.0-36.0); MEAN CORPUSCULAR VOLUME 108.1 fL (80.0-94.0); MEAN PLATELET VOLUME 10.5 fL (7.4-11.4); MONOCYTES # (AUTO) 1.5 10^3/uL (0.0-1.0); MONOCYTES % (AUTO) 19.7 %; NEUTROPHILS # (AUTO) 4.9 10^3/uL (1.5-6.6); PLT - PLATELET COUNT 148 10^3/uL (130-450); RED BLOOD COUNT 3.93 10^6/uL (4.70-6.10); RED CELL DISTRIBUTION WIDTH 15.1 % (12.0-15.0); WHITE BLOOD COUNT 7.8 x10^3/uL (4.8-10.8)
[2018-03-22 13:49] LABS: ALBUMIN 3.7 g/dL (3.2-5.5); ALBUMIN/GLOBULIN RATIO 0.9 (1.0-2.2); ALKALINE PHOSPHATASE 134 IU/L (42-121); ALT ALANINE AMINOTRANSFERASE 24 IU/L (10-60); AST ASPARTATE AMINOTRANSFERASE 32 IU/L (10-42); BILIRUBIN,TOTAL 2.2 mg/dL (0.2-1.0); BUN - BLOOD UREA NITROGEN 22 mg/dL (6-20); CALCIUM 9.1 mg/dL (8.5-10.3); CARBON DIOXIDE - CO2 25 mmol/L (21-32); CHLORIDE 106 mmol/L (101-111); CHOLESTEROL 81 mg/dL; CREATININE 1.7 mg/dL (0.6-1.2); GFR - MDRD 39 (>89); GLUCOSE 104 mg/dL (70-100); HDL CHOLESTEROL 27 mg/dL; LDL CHOLESTEROL,CALCULATED 39 mg/dL; LDL/HDL RATIO 1.4 (<3.6); SODIUM 138 mmol/L (135-145); TOTAL PROTEIN 7.7 g/dL (6.7-8.2); VLDL CHOLESTEROL 15 mg/dL
== END 2018-03-22 10:06 | disposition home or self-care (01) ==
LOC: LAB.R 10:05
PROVIDERS: ATTEND Internal Medicine
DX: I38 Endocarditis, valve unspecified (principal); I25.10 Atherosclerotic heart disease of native coronary artery without angina pectoris; I48.91 Unspecified atrial fibrillation; I50.9 Heart failure, unspecified
CPT/HCPCS: 80053; 80061; 83721; 84443; 85025

== ENCOUNTER 2018-03-25 07:55 | Emergency (ER) | payer MEDICARE, OTHER ==
--- NOTE | 2018-03-25 08:44 | XRAY Report ---
Procedure Date: 03/25/2018 Accession Number: [id number] / [id number] Procedure: XR - Chest 2 View X-Ray CPT Code: 82061 FULL RESULT: EXAM: CHEST RADIOGRAPHY EXAM DATE: 03/25/2018 08:28 AM. CLINICAL HISTORY: Known CHF, now with shortness of breath and weight gain. COMPARISON: CHEST 2 VIEW 10/09/2017. TECHNIQUE: 2 views. FINDINGS: Lungs/Pleura: No focal opacities evident. No pleural effusion. No pneumothorax. Normal volumes. Mediastinum: There is stable mild enlargement of the cardiac silhouette. There is a subclavian implanted cardiac device with lead tips in unchanged position. Other: The patient is post median sternotomy with intact sternal wires. No acute osseous finding. IMPRESSION: Stable mild enlargement of the cardiac silhouette. No acute change. RADIA
--- NOTE | 2018-03-25 08:55 | ED Physician Documentation ---
PD HPI DYSPNEA - Stated complaint Stated Complaint: COUGHING/DIFF BREATHING - Chief complaint Chief Complaint: Resp - History obtained from History obtained from: Patient - History of Present Illness Timing - onset: How many weeks ago (several) Timing - onset during: Light activity Timing - duration: Weeks Timing - details: Gradual onset, Still present, Waxing and waning Inciting event(s): URI Improved by: O2, BiPAP / CPAP, Rest, Sitting up Worsened by: Exertion, Laying flat, Coughing Associated symptoms: Cough. No: Chest pain / discomfort, Palpitations, Diaphoresis, Bilateral edema, Unilateral edema, Anxiety Similar symptoms before: Diagnosis (pneumonia and CHF) Recently seen: Clinic - Additional information Additional information: 82-year-old male with a history of congestive heart failure and pneumonia and COPD has developed progressive exertional dyspnea. He does not have swelling of his ankles he does feel that he is swollen through his mid abdomen and feels that he is retaining fluid. He does not have diuretics as a normal part of his medical regimen he does have some torsemide which he took 1 dose of and felt that helped a little. He has been into see his rn testing and has had a stress test done this week he has not had the results of this stress test as yet. He denies fever. HE does have some cough and post nasal drainage. Review of Systems Constitutional: denies: Fever Eyes: denies: Decreased vision Ears: denies: Ear pain Nose: reports: Rhinorrhea / runny nose, Congestion Throat: denies: Sore throat Cardiac: denies: Chest pain / pressure, Palpitations Respiratory: reports: Dyspnea, Cough GI: reports: Abdominal Swelling. denies: Abdominal Pain, Nausea, Vomiting : denies: Dysuria Skin: denies: Rash Musculoskeletal: denies: Neck pain, Back pain, Extremity pain Neurologic: denies: Generalized weakness, Focal weakness, Numbness PD PAST MEDICAL HISTORY - Past Medical History Cardiovascular: Congestive heart failure, Coronary artery disease, Atrial fibrillation Respiratory: None, Sleep apnea, CPAP use Neuro: None Endocrine/Autoimmune: None GI: None : Benign prostate hypertrophy, Other HEENT: Chronic vision loss Psych: None Musculoskeletal: None Derm: None - Past Surgical History Past Surgical History: Yes General: Hiatal hernia repair, Colonoscopy Cardiovascular: CABG, AICD, Cardiac catheterization - Present Medications Home Medications: Ambulatory Orders Medication Instructions Recorded Confirmed Candesartan Cilexetil [Atacand] 4 mg PO DAILY 11/06/13 10/09/17 Digoxin [Lanoxin] 250 mcg PO DAILY 11/06/13 10/09/17 Montelukast [Singulair] 10 mg PO QPM 11/06/13 10/09/17 Rosuvastatin [Crestor] 40 mg PO QPM 11/06/13 10/09/17 Aspirin [Aspir-Low] 81 mg PO DAILY 05/31/16 10/09/17 Ciclesonide [Omnaris] 1 spray BIRD DAILY PRN 05/31/16 10/09/17 Krill/Om-3/Dha/Epa/Phospho/Ast 300 mg PO DAILY 05/31/16 10/09/17 [[place]-3 Krill Oil 300 mg Sfgl] Rabeprazole Sodium [Aciphex] 20 mg PO QDAC 05/31/16 10/09/17 Vitamin E 1,000 units PO DAILY 05/31/16 10/09/17 Rivaroxaban [Xarelto] 20 mg PO DAILY 07/29/16 10/09/17 Docusate Sodium 100 mg PO DAILY 10/09/17 10/09/17 Glucosamine/Chondro Bradley A 2 tab PO DAILY 10/09/17 10/09/17 [Glucosamine-Chondroitin Tab] Metoprolol Succinate 50 mg PO DAILY 10/09/17 10/09/17 Multivitamin [Theragran] 1 tab PO DAILY 10/09/17 10/09/17 Sildenafil Citrate [Viagra] 50 - 100 mg PO PRN PRN 10/09/17 10/09/17 Doxycycline Hyclate 100 mg PO DAILY #7 tablet 10/14/17 - Allergies Allergies/Adverse Reactions: Allergies Allergy/AdvReac Type Severity Reaction Status Date / Time Penicillins Allergy Unknown unk Verified 03/25/18 08:06 - Social History Does the pt smoke?: No Smoking Status: Never smoker Does the pt drink ETOH?: No Does the pt have substance abuse?: No - Immunizations Immunizations are current?: Yes - POLST Patient has POLST: No POLST Status: Full Code PD ED PE NORMAL - Vitals Vital signs reviewed: Yes (hypertensive) - General General: Alert and oriented X 3, No acute distress, Well developed/nourished - HEENT HEENT: Atraumatic, PERRL, EOMI - Neck Neck: Supple, no meningeal sign, No bony TTP - Cardiac Cardiac: RRR, Other (2/6 holosystolic murmer at LSB) - Respiratory Respiratory: No respiratory distress, Clear bilaterally - Abdomen Abdomen: Soft, Non tender - Back Back: No CVA TTP, No spinal TTP - Derm Derm: Normal color, Warm and dry, No rash - Extremities Extremities: No deformity, No edema, No calf tenderness / cord - Neuro Neuro: Alert and oriented X 3, assistant to the president 2-12 intact, No motor deficit, No sensory deficit, Normal speech Eye Opening: Spontaneous Motor: Obeys Commands Verbal: Oriented GCS Score: 15 - Psych Psych: Normal mood, Normal affect Results - Vitals Vitals: Vital Signs - 24 hr 03/25/18 03/25/18 03/25/18 08:01 10:29 12:09 Temperature 36 C L Heart Rate 67 72 70 Respiratory 20 20 18 Rate Blood Pressure 142/90 H 155/105 H O2 Saturation 98 100 96 Oxygen O2 Source Room air - EKG (time done) 0817 Rate: Rate (enter#) (69) Rhythm: Paced Compare to prior EKG: Unchanged from prior EKG Computer interpretation: Agree with computer - Labs Labs: Laboratory Tests 03/25/18 03/25/18 03/25/18 09:20 09:20 09:20 WBC 7.9 RBC 3.83 L Hgb 13.6 L Hct 40.9 L MCV 106.9 H MCH 35.5 H MCHC 33.2 RDW 14.9 Plt Count 156 MPV 9.9 Neut # (Auto) 5.2 Lymph # (Auto) 1.0 L [place] # (Auto) 1.4 H Eos # (Auto) 0.1 Baso # (Auto) 0.1 Absolute Nucleated RBC 0.00 Nucleated RBC % 0.0 Sodium 137 Potassium 3.9 Chloride 105 Carbon Dioxide 23 Anion Gap 9.0 BUN 23 H Creatinine 1.8 H Estimated GFR (MDRD) 36 L Glucose 101 H Calcium 8.7 Total Bilirubin 2.6 H AST 36 ALT 29 Alkaline Phosphatase 140 H Troponin I 0.05 B-Natriuretic Peptide Total Protein 7.4 Albumin 3.7 Globulin 3.7 Albumin/Globulin Ratio 1.0 Lipase 41 03/25/18 09:50 WBC RBC Hgb Hct MCV MCH MCHC RDW Plt Count MPV Neut # (Auto) Lymph # (Auto) [place] # (Auto) Eos # (Auto) Baso # (Auto) Absolute Nucleated RBC Nucleated RBC % Sodium Potassium Chloride Carbon Dioxide Anion Gap BUN Creatinine Estimated GFR (MDRD) Glucose Calcium Total Bilirubin AST ALT Alkaline Phosphatase Troponin I B-Natriuretic Peptide 1053 H Total Protein Albumin Globulin Albumin/Globulin Ratio Lipase - Rads (name of study) 2 veiw chest Radiology: Prelim report reviewed (Impression: Stable mild enlargement of the cardiac silhouette. No acute change.), EMP read indepedently, See rad report Procedures - IVC sono (time) 0900 Bedside IVC sono: IVC measures (cm) (2.75), IVC collapsed c insp (cm) (2.75), High CVP, Fluid overload PD MEDICAL DECISION MAKING - ED course Complexity details: reviewed old records, reviewed results, re-evaluated patient , considered differential, d/w patient ED course: 82-year-old male with a history of CHF and COPD has shortness of breath and today on my evaluation he appears to have some fluid retention and he is administered some intravenous Lasix with marked improvement in his ability to breathe easier. He is quite happy when he leaves the emergency department I have discussed with him treatment with the diuretic for a period of time until he reaches his dry weight. He is doing daily weights again. - Sepsis Event Vital Signs: Vital Signs - 24 hr 03/25/18 03/25/18 03/25/18 08:01 10:29 12:09 Temperature 36 C L Heart Rate 67 72 70 Respiratory 20 20 18 Rate Blood Pressure 142/90 H 155/105 H O2 Saturation 98 100 96 Oxygen O2 Source Room air Departure - Departure Disposition: 01 Home, Self Care Clinical Impression: Systolic congestive heart failure, NYHA class 3 Qualifiers: Congestive heart failure chronicity: acute on chronic Qualified Code(s): I50.23 - Acute on chronic systolic (congestive) heart failure Condition: Stable Instructions: ED CHF General Follow-Up: Tonio Edmondson MD [Primary Care Provider] - Comments: Today it appears that you have retained fluid we have given you a dose of IV Lasix. I recommend that you restart your torsemide, weight yourself daily and adjust your dose based on your weight. Follow up with Dr. Graham as planned. Discharge Date/Time: 03/25/18 12:11
[2018-03-25] MEDS: FUROSEMIDE 40 MG/4 ML VIAL IVP STA (09:27)
[2018-03-25 09:33] LABS: BASOPHILS # (AUTO) 0.1 10^3/uL (0.0-0.1); BASOPHILS % (AUTO) 0.9 %; EOSINOPHILS # (AUTO) 0.1 10^3/uL (0.0-0.7); EOSINOPHILS % (AUTO) 1.9 %; HGB - HEMOGLOBIN 13.6 g/dL (14.0-18.0); LYMPHOCYTES % (AUTO) 13.1 %; MEAN CORPUSCULAR HEMOGLOBIN 35.5 pg (27.0-31.0); MEAN CORPUSCULAR HGB CONC 33.2 g/dL (32.0-36.0); MEAN CORPUSCULAR VOLUME 106.9 fL (80.0-94.0); MEAN PLATELET VOLUME 9.9 fL (7.4-11.4); MONOCYTES # (AUTO) 1.4 10^3/uL (0.0-1.0); NEUTROPHILS # (AUTO) 5.2 10^3/uL (1.5-6.6); NEUTROPHILS % (AUTO) 66.1 %; PLT - PLATELET COUNT 156 10^3/uL (130-450); RED BLOOD COUNT 3.83 10^6/uL (4.70-6.10); RED CELL DISTRIBUTION WIDTH 14.9 % (12.0-15.0); WHITE BLOOD COUNT 7.9 x10^3/uL (4.8-10.8)
[2018-03-25 09:49] LABS: ALBUMIN 3.7 g/dL (3.2-5.5); BILIRUBIN,TOTAL 2.6 mg/dL (0.2-1.0); CALCIUM 8.7 mg/dL (8.5-10.3); CREATININE 1.8 mg/dL (0.6-1.2); TOTAL PROTEIN 7.4 g/dL (6.7-8.2)
[2018-03-25 12:10] VITALS: BP 155/105
== END 2018-03-25 12:11 | disposition home or self-care (01) ==
LOC: ED 07:55
DX: I50.23 Acute on chronic systolic (congestive) heart failure (principal); I25.10 Atherosclerotic heart disease of native coronary artery without angina pectoris; Z95.1 Presence of aortocoronary bypass graft; Z95.810 Presence of automatic (implantable) cardiac defibrillator; Z79.82 Long term (current) use of aspirin
CPT/HCPCS: 36415; 71046; 80053; 83690; 83880; 84484; 85025; 93005; 96374; 99283; 99284

== ENCOUNTER 2018-04-28 15:27 | Outpatient (CLI) | payer MEDICARE, OTHER ==
[2018-04-28 15:50] LABS: CALCIUM 9.5 mg/dL (8.5-10.3); CREATININE 1.6 mg/dL (0.6-1.2)
== END 2018-04-28 15:28 | disposition home or self-care (01) ==
LOC: LAB 15:27
PROVIDERS: ATTEND Internal Medicine Cardiovascular Disease
DX: I50.9 Heart failure, unspecified (principal)
CPT/HCPCS: 36415; 80048

== ENCOUNTER 2018-05-12 12:55 | Outpatient (CLI) | payer MEDICARE, OTHER | END 2018-05-12 12:56 | disposition home or self-care (01) | LOC: DI 12:55 | PROVIDERS: ATTEND Internal Medicine Cardiovascular Disease | DX: I50.9 Heart failure, unspecified (principal); I08.3 Combined rheumatic disorders of mitral, aortic and tricuspid valves; I27.20 Pulmonary hypertension, unspecified | CPT/HCPCS: 93306 ==

== ENCOUNTER 2018-05-25 10:20 | Outpatient (CLI) | payer MEDICARE, OTHER ==
[2018-05-25 14:48] LABS: CREATININE 1.4 mg/dL (0.6-1.2)
== END 2018-05-25 10:21 | disposition home or self-care (01) ==
LOC: LAB.R 10:20
PROVIDERS: ATTEND Internal Medicine Cardiovascular Disease
DX: I50.9 Heart failure, unspecified (principal)
CPT/HCPCS: 80048

== ENCOUNTER 2018-06-28 15:28 | Outpatient (CLI) | payer MEDICARE, OTHER ==
[2018-06-28 15:52] LABS: CALCIUM 9.3 mg/dL (8.5-10.3); CREATININE 1.6 mg/dL (0.6-1.2)
== END 2018-06-28 15:29 | disposition home or self-care (01) ==
LOC: LAB 15:28
PROVIDERS: ATTEND Internal Medicine Cardiovascular Disease
DX: I48.2 Chronic atrial fibrillation (principal)
CPT/HCPCS: 36415; 80048

== ENCOUNTER 2018-09-15 12:17 | Outpatient (CLI) | payer MEDICARE, OTHER ==
[2018-09-15 12:32] LABS: BASOPHILS # (AUTO) 0.1 10^3/uL (0.0-0.1); BASOPHILS % (AUTO) 1.2 %; EOSINOPHILS # (AUTO) 0.3 10^3/uL (0.0-0.7); EOSINOPHILS % (AUTO) 4.3 %; HGB - HEMOGLOBIN 13.5 g/dL (14.0-18.0); LYMPHOCYTES # (AUTO) 0.7 10^3/uL (1.5-3.5); LYMPHOCYTES % (AUTO) 9.1 %; MEAN CORPUSCULAR HEMOGLOBIN 35.5 pg (27.0-31.0); MEAN CORPUSCULAR HGB CONC 33.8 g/dL (32.0-36.0); MEAN PLATELET VOLUME 8.9 fL (7.4-11.4); MONOCYTES # (AUTO) 1.6 10^3/uL (0.0-1.0); MONOCYTES % (AUTO) 19.8 %; NEUTROPHILS # (AUTO) 5.3 10^3/uL (1.5-6.6); NEUTROPHILS % (AUTO) 65.6 %; PLT - PLATELET COUNT 175 10^3/uL (130-450); WHITE BLOOD COUNT 8.1 x10^3/uL (4.8-10.8)
[2018-09-15 12:46] LABS: ALBUMIN 3.8 g/dL (3.2-5.5); BILIRUBIN,TOTAL 1.9 mg/dL (0.2-1.0); CALCIUM 9.3 mg/dL (8.5-10.3); CREATININE 1.6 mg/dL (0.6-1.2); TOTAL PROTEIN 7.5 g/dL (6.7-8.2)
== END 2018-09-15 12:18 | disposition home or self-care (01) ==
LOC: LAB 12:17
PROVIDERS: ATTEND Internal Medicine Cardiovascular Disease
DX: I50.9 Heart failure, unspecified (principal)
CPT/HCPCS: 36415; 80053; 83880; 84443; 85025

== ENCOUNTER 2018-09-18 12:55 | Outpatient (CLI) | payer MEDICARE, OTHER ==
--- NOTE | 2018-09-19 15:53 | XRAY Report ---
Reason: CHF, aortic stenosis, dyspenea Procedure Date: 09/18/2018 Accession Number: [id number] / [id number] Procedure: XR - Chest 2 View X-Ray CPT Code: 39533 FULL RESULT: EXAM: CHEST RADIOGRAPHY EXAM DATE: 09/18/2018 01:50 PM. CLINICAL HISTORY: CHF, aortic stenosis, dyspnea. COMPARISON: Chest 03/25/2018. TECHNIQUE: 2 views. FINDINGS: Lungs/Pleura: No focal opacities evident. No pleural effusion. No pneumothorax. Slightly increased volumes. Mediastinum: Stable cardiomegaly. Prior sternotomy. Cardiac pacer is noted. IMPRESSION: COPD. Stable cardiomegaly. No evidence of acute thoracic process. RADIA
== END 2018-09-18 12:56 | disposition home or self-care (01) ==
LOC: DI 12:55
PROVIDERS: ATTEND Internal Medicine Cardiovascular Disease
DX: I50.9 Heart failure, unspecified (principal); J44.9 Chronic obstructive pulmonary disease, unspecified; I08.0 Rheumatic disorders of both mitral and aortic valves; I27.20 Pulmonary hypertension, unspecified
CPT/HCPCS: 71046; 93306

== ENCOUNTER 2018-12-19 14:41 | Emergency (ER) | payer MEDICARE, OTHER ==
[2018-12-19 15:04] LABS: BASOPHILS % (AUTO) 1.3 %; EOSINOPHILS % (AUTO) 0.8 %; HGB - HEMOGLOBIN 13.9 g/dL (14.0-18.0); LYMPHOCYTES % (AUTO) 10.1 %; MEAN CORPUSCULAR HEMOGLOBIN 34.3 pg (27.0-31.0); MEAN CORPUSCULAR HGB CONC 32.3 g/dL (32.0-36.0); MEAN CORPUSCULAR VOLUME 106.1 fL (80.0-94.0); MONOCYTES % (AUTO) 19.3 %; NEUTROPHILS % (AUTO) 68.5 %; PLT - PLATELET COUNT 158 10^3/uL (130-450); RED BLOOD COUNT 4.06 10^6/uL (4.70-6.10); RED CELL DISTRIBUTION WIDTH 15.9 % (12.0-15.0)
[2018-12-19 15:16] LABS: ALBUMIN 3.9 g/dL (3.2-5.5); CALCIUM 9.9 mg/dL (8.5-10.3); CREATININE 2.1 mg/dL (0.6-1.2); TOTAL PROTEIN 7.9 g/dL (6.7-8.2)
[2018-12-19 15:19] LABS: ABNORMAL LYMPHS % (MANUAL) 0 %; BAND NEUTROPHILS % (MANUAL) 0 %
[2018-12-19 15:50] LABS: LYMPHOCYTES % (MANUAL) 11 %; MONOCYTES # (MANUAL) 2.3 10^3/uL (0.0-1.0); NEUTROPHILS # (MANUAL) 5.8 10^3/uL (1.5-6.6); NEUTROPHILS % (MANUAL) 64 %
--- NOTE | 2018-12-19 15:50 | XRAY Report ---
Reason: SOA cardiac hx Procedure Date: 12/19/2018 Accession Number: [id number] / [id number] Procedure: XR - Chest 1 View X-Ray CPT Code: 93903 FULL RESULT: EXAM: CHEST RADIOGRAPHY EXAM DATE: 12/19/2018 03:31 PM. CLINICAL HISTORY: SOA cardiac hx. COMPARISON: CHEST 2 VIEW 09/18/2018 1:36 PM. TECHNIQUE: 1 view. FINDINGS: Lungs/Pleura: Some peripheral reticular opacities present about the lateral left lower chest as before suggesting mild fibrosis. No acute consolidation, effusions or edema. The pulmonary vasculature is normal. Mediastinum: Mildly enlarged cardiac silhouette with postsurgical changes of CABG as before. A dual-lead pacer is in stable position. Other: None. IMPRESSION: 1. No acute disease or interval change. 2. Mild cardiac enlargement. RADIA
[2018-12-19 15:52] LABS: DIFFERENTIAL COMMENT MANUAL DIFFERENTIAL; PLATELET ESTIMATE, MANUAL NORMAL (130-450,000) (NORMAL); PLATELET MORPHOLOGY NORMAL APPEARANCE (NORMAL)
[2018-12-19 16:53] VITALS: BP 115/89
[2018-12-19] MEDS ORDERED: FUROSEMIDE 20 MG TABLET PO STA (17:09)
--- NOTE | 2018-12-19 17:09 | ED Physician Documentation ---
PD HPI DYSPNEA - Stated complaint Stated Complaint: SOA - Chief complaint Chief Complaint: Resp - History obtained from History obtained from: Patient - History of Present Illness Timing - onset: Other (This is an 83-year-old gentleman with history of mitral valve regurgitation is being scheduled for mitral valve clip who has intermittent orthopnea and dyspnea on exertion. He denies pedal edema, calf pain. He does have a mild minimal a productive cough over the last few days. He is noticed exertional dyspnea with walking and even occasional episodes of rest dyspnea. He had an angiogram he says a few months ago in preparation for the mitral valve clip which was negative. He is on a diuretic.) Review of Systems Constitutional: denies: Fever, Chills Cardiac: denies: Chest pain / pressure, Palpitations, Pedal edema, Calf pain Respiratory: reports: Dyspnea, Cough GI: reports: Constipation. denies: Abdominal Pain PD PAST MEDICAL HISTORY - Past Medical History Cardiovascular: Congestive heart failure, Coronary artery disease, Atrial fibrillation Respiratory: None, Sleep apnea, CPAP use Neuro: None Endocrine/Autoimmune: None GI: None : Benign prostate hypertrophy, Other HEENT: Chronic vision loss Psych: None Musculoskeletal: None Derm: None - Past Surgical History Past Surgical History: Yes General: Hiatal hernia repair, Colonoscopy Cardiovascular: CABG, AICD, Cardiac catheterization - Present Medications Home Medications: Ambulatory Orders Medication Instructions Recorded Confirmed Candesartan Cilexetil [Atacand] 4 mg PO DAILY 11/06/13 10/09/17 Digoxin [Lanoxin] 250 mcg PO DAILY 11/06/13 10/09/17 Montelukast [Singulair] 10 mg PO QPM 11/06/13 10/09/17 Rosuvastatin [Crestor] 40 mg PO QPM 11/06/13 10/09/17 Aspirin [Aspir-Low] 81 mg PO DAILY 05/31/16 10/09/17 Ciclesonide [Omnaris] 1 spray BIRD DAILY PRN 05/31/16 10/09/17 Krill/Om-3/Dha/Epa/Phospho/Ast 300 mg PO DAILY 05/31/16 10/09/17 [[place]-3 Krill Oil 300 mg Sfgl] Rabeprazole Sodium [Aciphex] 20 mg PO QDAC 05/31/16 10/09/17 Vitamin E 1,000 units PO DAILY 05/31/16 10/09/17 Rivaroxaban [Xarelto] 20 mg PO DAILY 07/29/16 10/09/17 Docusate Sodium 100 mg PO DAILY 10/09/17 10/09/17 Glucosa Bradley 2Kcl/Chondroitin Bradley 2 tab PO DAILY 10/09/17 10/09/17 [Glucosamine-Chondroitin Tablet] Metoprolol Succinate 50 mg PO DAILY 10/09/17 10/09/17 Multivitamin [Theragran] 1 tab PO DAILY 10/09/17 10/09/17 Sildenafil Citrate [Viagra] 50 - 100 mg PO PRN PRN 10/09/17 10/09/17 Doxycycline Hyclate 100 mg PO DAILY #7 tablet 10/14/17 Albuterol Sulf [Ventolin Hfa 1 - 2 puffs INH Q4HR PRN #1 inhaler 12/19/18 Inhaler] - Allergies Allergies/Adverse Reactions: Allergies Allergy/AdvReac Type Severity Reaction Status Date / Time Penicillins Allergy Unknown unk Verified 12/19/18 14:46 - Social History Does the pt smoke?: No Smoking Status: Never smoker Does the pt drink ETOH?: No Does the pt have substance abuse?: No - Immunizations Immunizations are current?: Yes - POLST Patient has POLST: No POLST Status: Full Code PD ED PE NORMAL - Vitals Vital signs reviewed: Yes - General General: Alert and oriented X 3, No acute distress - Neck Neck: No JVD - Cardiac Cardiac: RRR, Other (2 out of 6 systolic murmur decrescendo) - Respiratory Respiratory: No respiratory distress, Clear bilaterally - Abdomen Abdomen: Non tender - Extremities Extremities: No edema, No calf tenderness / cord - Psych Psych: Normal mood, Normal affect Results - Vitals Vitals: Vital Signs - 24 hr 12/19/18 12/19/18 14:44 16:52 Temperature 36 C L 36.6 C Heart Rate 71 70 Respiratory 20 17 Rate Blood Pressure 114/79 115/89 H O2 Saturation 96 96 Oxygen O2 Source Room air - EKG (time done) 1500 Rate: Rate (enter#) (69) Rhythm: Paced - Labs Labs: Laboratory Tests 12/19/18 12/19/18 12/19/18 14:59 14:59 14:59 WBC 9.0 RBC 4.06 L Hgb 13.9 L Hct 43.1 MCV 106.1 H MCH 34.3 H MCHC 32.3 RDW 15.9 H Plt Count 158 MPV 10.0 Neut # (Auto) Not Reportable Lymph # (Auto) Not Reportable [place] # (Auto) Not Reportable Eos # (Auto) Not Reportable Baso # (Auto) Not Reportable Absolute Nucleated RBC Not Reportable Total Counted 100 Band Neuts % (Manual) 0 Abnorm Lymph % (Manual) 0 Nucleated RBC % Not Reportable Neutrophils # (Manual) 5.8 Lymphocytes # (Manual) 1.0 L Monocytes # (Manual) 2.3 H Eosinophils # (Manual) 0.0 Basophils # (Manual) 0.0 Differential Comment MANUAL DIFFERENTIAL Manual Slide Review Indicated Platelet Estimate NORMAL (130-450,000) Platelet Morphology NORMAL APPEARANCE RBC Morph Micro Appear 1+ OVALOCYTES Sodium 138 Potassium 4.2 Chloride 103 Carbon Dioxide 22 Anion Gap 13.0 BUN 26 H Creatinine 2.1 H Estimated GFR (MDRD) 30 L Glucose 135 H Calcium 9.9 Total Bilirubin 2.0 H AST 39 ALT 31 Alkaline Phosphatase 121 Troponin I < 0.04 Total Protein 7.9 Albumin 3.9 Globulin 4.0 Albumin/Globulin Ratio 1.0 Lipase 40 - Rads (name of study) 1v chest Radiology: EMP read contemporaneously (Pacemaker in place, prior CABG, mild cardiac enlargement, no obvious fluid overload.) PD MEDICAL DECISION MAKING - ED course ED course: 83-year-old gentleman with dyspnea. I suspect it is multifactorial. He appears mostly euvolemic but the pattern would suggest a little failure. He is not in failure though clinically or on x-ray. Also I suspect the constipation may be pushing up on his diaphragm and he has the cough. He is taking a laxative and we will add albuterol and a single dose of diuretic here. Departure - Departure Disposition: 01 Home, Self Care Clinical Impression: Systolic congestive heart failure, NYHA class 3 Qualifiers: Congestive heart failure chronicity: acute on chronic Qualified Code(s): I50.23 - Acute on chronic systolic (congestive) heart failure Condition: Good Record reviewed to determine appropriate education?: Yes Instructions: Heart Failure Dc Prescriptions: Albuterol Sulf [Ventolin Hfa Inhaler] 1 - 2 puffs INH Q4HR PRN #1 inhaler PRN Reason: Shortness Of Air/Wheezing Comments: Continue your efforts to have a bowel movements, I think that will help. Return for new or worsening symptoms. Continue following up with your cardiology team to schedule the mitral valve clip.
== END 2018-12-19 17:35 | disposition home or self-care (01) ==
LOC: ED 14:41
DX: I50.23 Acute on chronic systolic (congestive) heart failure (principal); I34.0 Nonrheumatic mitral (valve) insufficiency; Z95.0 Presence of cardiac pacemaker; Z95.1 Presence of aortocoronary bypass graft
CPT/HCPCS: 36415; 71045; 80053; 83690; 84484; 85025; 93005; 99283; 99284; A9270

== ENCOUNTER 2019-01-13 13:36 | Emergency (ER) | payer MEDICARE, OTHER ==
--- NOTE | 2019-01-13 14:18 | XRAY Report ---
Reason: soa, productive cough Procedure Date: 01/13/2019 Accession Number: [id number] / [id number] Procedure: XR - Chest 2 View X-Ray CPT Code: 22915 FULL RESULT: EXAM: CHEST RADIOGRAPHY EXAM DATE: 01/13/2019 02:05 PM. CLINICAL HISTORY: Soa, productive cough. COMPARISON: CHEST 1 VIEW 12/19/2018 3:22 PM. TECHNIQUE: 2 views. FINDINGS: Lungs/Pleura: Bronchial thickening. Septal prominence particularly in the left lung base again seen. Small pleural effusions. No pneumothorax. Mediastinum: Cardiomegaly. Aortic tortuosity. Other: Degenerative changes. Changes again seen from median sternotomy. Epicardial leads and dual lead left-sided transvenous generator are stable. IMPRESSION: 1. Cardiomegaly. Borderline edema. 2. Bronchial thickening which can be seen with bronchitis. No dense consolidation. 3. Small pleural effusions. RADIA
[2019-01-13 14:22] LABS: BASOPHILS % (AUTO) 1.2 %; EOSINOPHILS % (AUTO) 2.6 %; HGB - HEMOGLOBIN 14.2 g/dL (14.0-18.0); LYMPHOCYTES % (AUTO) 13.2 %; MEAN CORPUSCULAR HGB CONC 32.3 g/dL (32.0-36.0); MEAN PLATELET VOLUME 10.4 fL (7.4-11.4); MONOCYTES % (AUTO) 16.3 %; NEUTROPHILS % (AUTO) 66.7 %; PLT - PLATELET COUNT 151 10^3/uL (130-450); RED BLOOD COUNT 4.17 10^6/uL (4.70-6.10); RED CELL DISTRIBUTION WIDTH 15.9 % (12.0-15.0); WHITE BLOOD COUNT 6.9 x10^3/uL (4.8-10.8)
[2019-01-13 14:26] LABS: ABNORMAL LYMPHS % (MANUAL) 0 %; BAND NEUTROPHILS % (MANUAL) 0 %
[2019-01-13 14:36] LABS: ALBUMIN 3.8 g/dL (3.2-5.5); CALCIUM 9.5 mg/dL (8.5-10.3); CREATININE 1.9 mg/dL (0.6-1.2); TOTAL PROTEIN 7.7 g/dL (6.7-8.2)
--- NOTE | 2019-01-13 15:00 | ED Physician Documentation ---
PD HPI DYSPNEA - Stated complaint Stated Complaint: SOA - Chief complaint Chief Complaint: Resp - History obtained from History obtained from: Patient - History of Present Illness Timing - onset: How many months ago (1) Timing - details: Gradual onset Worsened by: Laying flat Associated symptoms: Cough Similar symptoms before: Diagnosis (chf) - Additional information Additional information: The patient is an 83-year-old male with history of valvular heart disease, c ongestive heart failure, and sleep apnea who presents with shortness of breath and fatigue that has been bothering him for the past month, but was worse last night. He reports cough that is productive of scant sputum. He denies fever, chest pain, or abdominal pain. He states it feels like "the flu." He is scheduled for valvular heart surgery, and wants to make sure he doesn't have an infection that will impede the procedure. Review of Systems Constitutional: reports: Fatigue. denies: Fever Ears: denies: Tinnitus/ringing Nose: denies: Congestion Throat: denies: Sore throat Cardiac: denies: Chest pain / pressure Respiratory: reports: Dyspnea, Cough GI: denies: Abdominal Pain, Nausea, Vomiting : denies: Dysuria Skin: denies: Rash Musculoskeletal: denies: Back pain, Extremity swelling Neurologic: denies: Focal weakness, Numbness, Headache PD PAST MEDICAL HISTORY - Past Medical History Cardiovascular: Congestive heart failure, Coronary artery disease, Atrial fibrillation Respiratory: None, Sleep apnea, CPAP use Neuro: None Endocrine/Autoimmune: None GI: None : Benign prostate hypertrophy, Other HEENT: Chronic vision loss Psych: None Musculoskeletal: None Derm: None - Past Surgical History Past Surgical History: Yes General: Hiatal hernia repair, Colonoscopy Cardiovascular: CABG, AICD, Cardiac catheterization - Present Medications Home Medications: Ambulatory Orders Medication Instructions Recorded Confirmed Candesartan Cilexetil [Atacand] 4 mg PO DAILY 11/06/13 01/13/19 Digoxin [Lanoxin] 250 mcg PO DAILY 11/06/13 01/13/19 Montelukast [Singulair] 10 mg PO QPM 11/06/13 01/13/19 Rosuvastatin [Crestor] 40 mg PO QPM 11/06/13 01/13/19 Aspirin [Aspir-Low] 81 mg PO DAILY 05/31/16 01/13/19 Ciclesonide [Omnaris] 1 spray BIRD DAILY PRN 05/31/16 01/13/19 Krill/Om-3/Dha/Epa/Phospho/Ast 300 mg PO DAILY 05/31/16 01/13/19 [[place]-3 Krill Oil 300 mg Sfgl] Rabeprazole Sodium [Aciphex] 20 mg PO QDAC 05/31/16 01/13/19 Vitamin E 1,000 units PO DAILY 05/31/16 01/13/19 Rivaroxaban [Xarelto] 20 mg PO DAILY 07/29/16 01/13/19 Glucosa Bradley 2Kcl/Chondroitin Bradley 2 tab PO DAILY 10/09/17 01/13/19 [Glucosamine-Chondroitin Tablet] Multivitamin [Theragran] 1 tab PO DAILY 10/09/17 01/13/19 Albuterol Sulf [Ventolin Hfa 1 - 2 puffs INH Q4HR PRN #1 inhaler 12/19/18 01/13/19 Inhaler] Metoprolol Succinate [Toprol Xl] 1 tab PO DAILY 01/13/19 01/13/19 Olopatadine HCl [Patanase] 1 spray IH DAILY 01/13/19 01/13/19 Spironolactone 1 tab PO 01/13/19 Torsemide 10 mg PO 01/13/19 - Allergies Allergies/Adverse Reactions: Allergies Allergy/AdvReac Type Severity Reaction Status Date / Time Penicillins Allergy Unknown unk Verified 01/13/19 13:56 - Social History Does the pt smoke?: No Smoking Status: Never smoker Does the pt drink ETOH?: No Does the pt have substance abuse?: No - Immunizations Immunizations are current?: Yes - POLST Patient has POLST: No POLST Status: Full Code PD ED PE NORMAL - Vitals Vital signs reviewed: Yes (normal) - General General: Alert and oriented X 3, Well developed/nourished - HEENT HEENT: Atraumatic, Moist mucous membranes, Pharynx benign - Neck Neck: No adenopathy, No JVD - Cardiac Cardiac: RRR, Other (2/6 systolic murmur.) - Respiratory Respiratory: No respiratory distress, Other (Few crackles at the bases bilaterally.) - Abdomen Abdomen: Soft, Non tender - Back Back: No CVA TTP - Derm Derm: No rash - Extremities Extremities: No edema, No calf tenderness / cord - Neuro Neuro: Alert and oriented X 3, No motor deficit, Normal speech Results - Vitals Vitals: Oxygen O2 Source Room air - EKG (time done) 13:48 Rate: Rate (enter#) (69) Rhythm: Paced - Labs Labs: Laboratory Tests 01/13/19 01/13/19 01/13/19 14:14 14:14 14:14 WBC 6.9 RBC 4.17 L Hgb 14.2 Hct 43.8 MCV 105.0 H MCH 34.0 H MCHC 32.3 RDW 15.9 H Plt Count 151 MPV 10.4 Neut # (Auto) Not Reportable Lymph # (Auto) Not Reportable [place] # (Auto) Not Reportable Eos # (Auto) Not Reportable Baso # (Auto) Not Reportable Absolute Nucleated RBC Not Reportable Total Counted 100 Band Neuts % (Manual) 0 Abnorm Lymph % (Manual) 0 Nucleated RBC % Not Reportable Neutrophils # (Manual) 4.1 Lymphocytes # (Manual) 1.5 Monocytes # (Manual) 0.8 Eosinophils # (Manual) 0.6 Basophils # (Manual) 0.0 Differential Comment MANUAL DIFFERENTIAL Platelet Estimate NORMAL (130-450,000) Platelet Morphology NORMAL APPEARANCE RBC Morph Micro Appear 1+ ANISOCYTOSIS Sodium 139 Potassium 4.2 Chloride 102 Carbon Dioxide 26 Anion Gap 11.0 BUN 26 H Creatinine 1.9 H Estimated GFR (MDRD) 34 L Glucose 139 H Calcium 9.5 Total Bilirubin 3.0 H AST 30 ALT 26 Alkaline Phosphatase 130 H Troponin I < 0.04 B-Natriuretic Peptide Total Protein 7.7 Albumin 3.8 Globulin 3.9 Albumin/Globulin Ratio 1.0 Lipase 35 01/13/19 15:09 WBC RBC Hgb Hct MCV MCH MCHC RDW Plt Count MPV Neut # (Auto) Lymph # (Auto) [place] # (Auto) Eos # (Auto) Baso # (Auto) Absolute Nucleated RBC Total Counted Band Neuts % (Manual) Abnorm Lymph % (Manual) Nucleated RBC % Neutrophils # (Manual) Lymphocytes # (Manual) Monocytes # (Manual) Eosinophils # (Manual) Basophils # (Manual) Differential Comment Platelet Estimate Platelet Morphology RBC Morph Micro Appear Sodium Potassium Chloride Carbon Dioxide Anion Gap BUN Creatinine Estimated GFR (MDRD) Glucose Calcium Total Bilirubin AST ALT Alkaline Phosphatase Troponin I B-Natriuretic Peptide 1069 H Total Protein Albumin Globulin Albumin/Globulin Ratio Lipase - Rads (name of study) CXR Radiology: Prelim report reviewed, EMP read contemporaneously, See rad report (1) Cardiomegaly. Borderline edema. 2) Bronchial thickening which can be seen with bronchitis. No dense consolidation. 3) Small pleural effusions.) PD MEDICAL DECISION MAKING - ED course Complexity details: reviewed old records, reviewed results, re-evaluated patient, considered differential, d/w patient ED course: The patient's presentation is most consistent with left sided congestive heart failure. Chest x-ray reveals cardiomegaly and small pleural effusions, and BNP is elevated at 1069. His troponin is normal at less than 0.04, and his electrocardiogram reveals no evidence of acute ischemic abnormality. His total bilirubin is elevated at 3.0, which is slightly higher than previous bilirubin of 2.6. Treatment in the emergency department included administration of Lasix 20 mg IV. After diuresis, the patient felt subjectively improved. He demonstrated ability to ambulate in the hallway, maintaining a pulse oximetry of 98% on room air. I discussed with him the diagnosis, the importance of continuing his diuretic therapy, outpatient follow-up, as well as potentially worrisome signs or symptoms that should prompt reevaluation in the emergency department. Departure - Departure Disposition: 01 Home, Self Care Clinical Impression: Hyperbilirubinemia Congestive heart failure Qualifiers: Heart failure type: unspecified Heart failure chronicity: acute on chronic Qualified Code(s): I50.9 - Heart failure, unspecified Condition: Stable Instructions: ED CHF Left Side Follow-Up: Ayo Melendrez MD [Primary Care Provider] - Comments: Continue your previously prescribed diuretic therapy. Limit your salt intake. Follow-up with your primary physician or your pharmacy account director within one week. Return to the emergency department if you develop increasing difficulty breathing or otherwise worsening symptoms. Discharge Date/Time: 01/13/19 17:52
[2019-01-13 15:08] LABS: EOSINOPHILS # (MANUAL) 0.6 10^3/uL (0-0.7); LYMPHOCYTES # (MANUAL) 1.5 10^3/uL (1.5-3.5); LYMPHOCYTES % (MANUAL) 22 %; MONOCYTES # (MANUAL) 0.8 10^3/uL (0.0-1.0); NEUTROPHILS # (MANUAL) 4.1 10^3/uL (1.5-6.6); NEUTROPHILS % (MANUAL) 59 %
[2019-01-13 15:09] LABS: PLATELET ESTIMATE, MANUAL NORMAL (130-450,000) (NORMAL); PLATELET MORPHOLOGY NORMAL APPEARANCE (NORMAL); RBC MORPHOLOGY (MULTIPLE) 1+ ANISOCYTOSIS (NORMAL)
[2019-01-13 15:10] LABS: DIFFERENTIAL COMMENT MANUAL DIFFERENTIAL
[2019-01-13] MEDS ORDERED: FUROSEMIDE 20 MG/2 ML VIAL IVP STA (15:45)
[2019-01-13 16:19] VITALS: BP 108/86
== END 2019-01-13 17:52 | disposition home or self-care (01) ==
LOC: ED 13:36
DX: I50.9 Heart failure, unspecified (principal); E80.6 Other disorders of bilirubin metabolism; I25.810 Atherosclerosis of coronary artery bypass graft(s) without angina pectoris; Z95.810 Presence of automatic (implantable) cardiac defibrillator; Z86.79 Personal history of other diseases of the circulatory system
CPT/HCPCS: 36415; 71046; 80053; 83690; 83880; 84484; 85025; 93005; 96374; 99283; 99284

== ENCOUNTER 2019-02-06 16:01 | Emergency (ER) | payer MEDICARE, OTHER ==
[2019-02-06 16:28] LABS: BASOPHILS # (AUTO) 0.1 10^3/uL (0.0-0.1); EOSINOPHILS % (AUTO) 0.6 %; HGB - HEMOGLOBIN 13.9 g/dL (14.0-18.0); LYMPHOCYTES # (AUTO) 0.9 10^3/uL (1.5-3.5); LYMPHOCYTES % (AUTO) 14.6 %; MEAN CORPUSCULAR HEMOGLOBIN 33.6 pg (27.0-31.0); MEAN CORPUSCULAR HGB CONC 32.7 g/dL (32.0-36.0); MEAN CORPUSCULAR VOLUME 102.5 fL (80.0-94.0); MEAN PLATELET VOLUME 9.9 fL (7.4-11.4); MONOCYTES # (AUTO) 1.1 10^3/uL (0.0-1.0); MONOCYTES % (AUTO) 18.7 %; NEUTROPHILS # (AUTO) 3.9 10^3/uL (1.5-6.6); NEUTROPHILS % (AUTO) 65.1 %; PLT - PLATELET COUNT 136 10^3/uL (130-450); RED BLOOD COUNT 4.13 10^6/uL (4.70-6.10); WHITE BLOOD COUNT 5.9 x10^3/uL (4.8-10.8)
[2019-02-06 16:40] LABS: CALCIUM 9.3 mg/dL (8.5-10.3); CREATININE 2.1 mg/dL (0.6-1.2)
--- NOTE | 2019-02-06 16:55 | XRAY Report ---
Reason: sob Procedure Date: 02/06/2019 Accession Number: [id number] / [id number] Procedure: XR - Chest 1 View X-Ray CPT Code: 58185 FULL RESULT: EXAM: CHEST RADIOGRAPHY EXAM DATE: 02/06/2019 04:22 PM. CLINICAL HISTORY: Sob. COMPARISON: CHEST 2 VIEW 01/13/2019 1:58 PM. TECHNIQUE: 1 view. FINDINGS: Lungs/Pleura: No localized infiltrate, consolidation, definite effusion, or pneumothorax. Cannot exclude trace left effusion. Mediastinum: Mild cardiomegaly, similar to previous study. Upper lobe vessels not distended. Other: Indwelling defibrillator on the left with intact leads. Status post median sternotomy. Degenerative changes. IMPRESSION: No acute disease with caveat for possible trace left effusion. RADIA
[2019-02-06] MEDS ORDERED: FUROSEMIDE 40 MG/4 ML VIAL IVP STA (16:58)
--- NOTE | 2019-02-06 17:14 | ED Physician Documentation ---
PD HPI DYSPNEA - Stated complaint Stated Complaint: SOA - Chief complaint Chief Complaint: Resp - History obtained from History obtained from: Patient - History of Present Illness Timing - onset: How many months ago (several) Timing - onset during: Exertion, Other (walking around, or lying flat) Timing - duration: Months Timing - details: Gradual onset (gradual worsening recently and feels like he has had some weight gain) Inciting event(s): Other (unknown) Improved by: Rest, Sitting up Worsened by: Exertion, Laying flat Associated symptoms: Bilateral edema. No: Fever, Cough, Hemoptysis, Wheezing, Chest pain / discomfort, Palpitations, Diaphoresis, Unilateral edema, Anxiety Similar symptoms before: Diagnosis (hx of CHF, feels like his CHF) Recently seen: Clinic (patient is scheduled for valvular repairs next month) Review of Systems Ten Systems: 10 systems reviewed and negative Constitutional: denies: Fever, Chills Cardiac: reports: Pedal edema. denies: Chest pain / pressure Respiratory: reports: Dyspnea. denies: Cough, Hemoptysis, Wheezing GI: denies: Abdominal Pain Skin: denies: Rash Neurologic: denies: Generalized weakness PD PAST MEDICAL HISTORY - Past Medical History Past Medical History: Yes Cardiovascular: Congestive heart failure, Coronary artery disease, Atrial fibr illation Respiratory: None, Sleep apnea, CPAP use Neuro: None Endocrine/Autoimmune: None GI: None : Benign prostate hypertrophy, Other HEENT: Chronic vision loss Psych: None Musculoskeletal: None Derm: None - Past Surgical History Past Surgical History: Yes General: Hiatal hernia repair, Colonoscopy Cardiovascular: CABG, AICD, Cardiac catheterization - Present Medications Home Medications: Ambulatory Orders Medication Instructions Recorded Confirmed RX: Candesartan Cilexetil [Atacand] 4 mg PO DAILY 11/06/13 01/13/19 RX: Digoxin [Lanoxin] 250 mcg PO DAILY 11/06/13 01/13/19 RX: Montelukast [Singulair] 10 mg PO QPM 11/06/13 01/13/19 RX: Rosuvastatin [Crestor] 40 mg PO QPM 11/06/13 01/13/19 RX: Aspirin [Aspir-Low] 81 mg PO DAILY 05/31/16 01/13/19 RX: Ciclesonide [Omnaris] 1 spray BIRD DAILY PRN 05/31/16 01/13/19 RX: Krill/Om-3/Dha/Epa/Phospho/Ast 300 mg PO DAILY 05/31/16 01/13/19 [[place]-3 Krill Oil 300 mg Sfgl] RX: Rabeprazole Sodium [Aciphex] 20 mg PO QDAC 05/31/16 01/13/19 RX: Vitamin E 1,000 units PO DAILY 05/31/16 01/13/19 RX: Rivaroxaban [Xarelto] 20 mg PO DAILY 07/29/16 01/13/19 RX: Glucosa Bradley 2Kcl/Chondroitin Bradley 2 tab PO DAILY 10/09/17 01/13/19 [Glucosamine-Chondroitin Tablet] RX: Multivitamin [Theragran] 1 tab PO DAILY 10/09/17 01/13/19 RX: Albuterol Sulf [Ventolin Hfa 1 - 2 puffs INH Q4HR PRN #1 inhaler 12/19/18 01/13/19 Inhaler] Metoprolol Succinate [Toprol Xl] 1 tab PO DAILY 01/13/19 01/13/19 Olopatadine HCl [Patanase] 1 spray IH DAILY 01/13/19 01/13/19 RX: Spironolactone 1 tab PO 01/13/19 RX: Torsemide 10 mg PO 01/13/19 - Allergies Allergies/Adverse Reactions: Allergies Allergy/AdvReac Type Severity Reaction Status Date / Time Penicillins Allergy Unknown unk Verified 02/06/19 16:15 - Social History Does the pt smoke?: No Smoking Status: Never smoker Does the pt drink ETOH?: Yes Does the pt have substance abuse?: No - Immunizations Immunizations are current?: Yes - POLST Patient has POLST: No POLST Status: Full Code PD ED PE NORMAL - Vitals Vital signs reviewed: Yes - General General: Alert and oriented X 3 - HEENT HEENT: Atraumatic - Neck Neck: Supple, no meningeal sign, No JVD - Cardiac Cardiac: RRR, No murmur, No gallop, No rub - Respiratory Respiratory: No respiratory distress - Abdomen Abdomen: Soft, Non tender, Non distended - Male Male : Deferred - Rectal Rectal: Deferred - Derm Derm: Normal color, Warm and dry, No rash - Extremities Extremities: Other (bilateral LE edema 2+ to lower calf) - Neuro Neuro: Alert and oriented X 3 Eye Opening: Spontaneous Motor: Obeys Commands Verbal: Oriented GCS Score: 15 - Psych Psych: Normal mood, Normal affect PD ED PE EXPANDED - Respiratory Respiratory: Rales, Right lower lobe, Left lower lobe Results - Vitals Vitals: Vital Signs - 24 hr 02/06/19 02/06/19 02/06/19 16:12 16:26 16:45 Temperature 36.9 C Heart Rate 71 70 Respiratory 18 20 20 Rate Blood Pressure 98/75 97/76 O2 Saturation 70 L 98 02/06/19 17:15 Temperature Heart Rate 70 Respiratory 17 Rate Blood Pressure 94/84 H O2 Saturation 99 Oxygen O2 Source Room air - EKG (time done) No standard instances Rate: Other (Ventricular Paced rhythm, negative Sgarbossa's criteria ) Rhythm: Paced [place]: LAD Compare to prior EKG: Unchanged from prior EKG Computer interpretation: Agree with computer - Labs Labs: Laboratory Tests 02/06/19 02/06/19 02/06/19 16:22 16:22 16:22 WBC 5.9 RBC 4.13 L Hgb 13.9 L Hct 42.4 MCV 102.5 H MCH 33.6 H MCHC 32.7 RDW 16.0 H Plt Count 136 MPV 9.9 Neut # (Auto) 3.9 Lymph # (Auto) 0.9 L [place] # (Auto) 1.1 H Eos # (Auto) 0.0 Baso # (Auto) 0.1 Absolute Nucleated RBC 0.00 Nucleated RBC % 0.1 Sodium 135 Potassium 4.4 Chloride 104 Carbon Dioxide 20 L Anion Gap 11.0 BUN 27 H Creatinine 2.1 H Estimated GFR (MDRD) 30 L Glucose 87 Calcium 9.3 Troponin I 0.04 B-Natriuretic Peptide 02/06/19 16:22 WBC RBC Hgb Hct MCV MCH MCHC RDW Plt Count MPV Neut # (Auto) Lymph # (Auto) [place]da # (Auto) Eos # (Auto) Baso # (Auto) Absolute Nucleated RBC Nucleated RBC % Sodium Potassium Chloride Carbon Dioxide Anion Gap BUN Creatinine Estimated GFR (MDRD) Glucose Calcium Troponin I B-Natriuretic Peptide 1391 H - Rads (name of study) No standard instances Radiology: EMP read indepedently, Other (Cardiomegaly, stable, possible L Lower lobe effusion) PD MEDICAL DECISION MAKING - ED course Complexity details: reviewed old records, reviewed results, re-evaluated patient, considered differential, d/w patient ED course: DDx - PE, CHF, Pulmonary edema, Pneumonia, ACS, pleural effusion 83 y/o M with hx of CHF, scheduled for surgical valvular repair of his heart in 1 month. Chronic gradually worsening orthopnea and dyspnea on exertion with some increased LE edema in both legs. BNP elevated. However EKG is paced, nonischemic and troponin negative. He does not appear to have any acute worsening of his cardiac function and no current ischemia. Pt however with normal sats and pt is not distressed. He was given a dose of IV lasix here and can continue his torsemide at home and f/u with his PCP and [facility]ner to monitor his CHF symptoms. Departure - Departure Disposition: Home, Self Care Clinical Impression: CHF (congestive heart failure) Qualifiers: Heart failure type: unspecified Heart failure chronicity: acute on chronic Qualified Code(s): I50.9 - Heart failure, unspecified Condition: Stable Instructions: Heart Failure Dc Follow-Up: your, doctor [Other] Comments: Your labs, heart enzymes, EKG and chest xray were all stable. You likely have some mild fluid overload and could use extra diuretics. You were given a dose of IV lasix today. Watch your fluid and salt intake, weigh yourself regularly and contact your doctor if the symptoms continue. Return to the ED if you develop any worsening or new concerning symptoms. Discharge Date/Time: 02/06/19 17:29
[2019-02-06 17:23] VITALS: BP 94/84
== END 2019-02-06 17:29 | disposition home or self-care (01) ==
LOC: ED 16:01
DX: I50.9 Heart failure, unspecified (principal); I25.10 Atherosclerotic heart disease of native coronary artery without angina pectoris; Z95.1 Presence of aortocoronary bypass graft
CPT/HCPCS: 36415; 71045; 80048; 83880; 84484; 85025; 93005; 96374; 99283; 99284

== ENCOUNTER 2019-02-12 09:24 | Outpatient (CLI) | payer MEDICARE, OTHER | END 2019-02-12 09:25 | disposition home or self-care (01) | LOC: RT 09:24 | PROVIDERS: ATTEND Specialist | DX: I34.0 Nonrheumatic mitral (valve) insufficiency (principal) | CPT/HCPCS: 94010 ==

== ENCOUNTER 2019-02-18 21:53 | Emergency (ER) | payer MEDICARE, OTHER ==
--- NOTE | 2019-02-18 22:23 | XRAY Report ---
Reason: SOA with increased edema Procedure Date: 02/18/2019 Accession Number: [id number] / [id number] Procedure: XR - Chest 1 View X-Ray CPT Code: 18725 FULL RESULT: EXAM: CHEST RADIOGRAPHY EXAM DATE: 02/18/2019 10:16 PM. CLINICAL HISTORY: Soreness of breath with increased edema. COMPARISON: CHEST 1 VIEW 02/06/2019 4:21 PM CHEST 2 VIEW 09/18/2018 1:36 PM. TECHNIQUE: 1 view. FINDINGS: Lungs/Pleura: No focal pneumonia or edema evident. No gross pneumothorax or pleural effusion. Mediastinum: Stable mild to moderate cardiomegaly. Stable aortic contour. Other: Post median sternotomy and CABG. Stable left pacer/AICD. IMPRESSION: Mild cardiomegaly without overt heart failure. RADIA
[2019-02-18 22:51] LABS: BASOPHILS # (AUTO) 0.1 10^3/uL (0.0-0.1); BASOPHILS % (AUTO) 1.3 %; EOSINOPHILS # (AUTO) 0.1 10^3/uL (0.0-0.7); EOSINOPHILS % (AUTO) 1.6 %; HGB - HEMOGLOBIN 12.4 g/dL (14.0-18.0); LYMPHOCYTES # (AUTO) 0.8 10^3/uL (1.5-3.5); LYMPHOCYTES % (AUTO) 12.9 %; MEAN CORPUSCULAR HEMOGLOBIN 33.1 pg (27.0-31.0); MEAN CORPUSCULAR HGB CONC 33.1 g/dL (32.0-36.0); MEAN CORPUSCULAR VOLUME 100.1 fL (80.0-94.0); MEAN PLATELET VOLUME 9.7 fL (7.4-11.4); MONOCYTES # (AUTO) 1.2 10^3/uL (0.0-1.0); MONOCYTES % (AUTO) 20.1 %; NEUTROPHILS # (AUTO) 3.9 10^3/uL (1.5-6.6); NEUTROPHILS % (AUTO) 64.1 %; PLT - PLATELET COUNT 178 10^3/uL (130-450); RED BLOOD COUNT 3.75 10^6/uL (4.70-6.10); WHITE BLOOD COUNT 6.1 x10^3/uL (4.8-10.8)
[2019-02-18 23:05] LABS: ALBUMIN 3.3 g/dL (3.2-5.5); ALBUMIN/GLOBULIN RATIO 0.9 (1.0-2.2); BILIRUBIN,TOTAL 2.3 mg/dL (0.2-1.0); CREATININE 2.7 mg/dL (0.6-1.2); TOTAL PROTEIN 7.1 g/dL (6.7-8.2)
[2019-02-18] MEDS ORDERED: SODIUM CHLORIDE 0.9% 250 ML IV STA (23:09)
[2019-02-18 23:19] LABS: DIGOXIN 0.8 ng/mL
--- NOTE | 2019-02-19 00:26 | ED Physician Documentation ---
PD HPI DYSPNEA - Stated complaint Stated Complaint: CP - Chief complaint Chief Complaint: Cardiac - History obtained from History obtained from: Patient, Family - History of Present Illness Timing - onset: How many days ago (gradually worsening over several days) Timing - onset during: Light activity Timing - details: Gradual onset, Intermittant Pain level max: 0 Pain level now: 0 Improved by: Rest Worsened by: Exertion Associated symptoms: Bilateral edema. No: Fever, Cough, Wheezing, Chest pain / discomfort, Palpitations Recently seen: Emergency Dept - Additional information Additional information: c/o gradually worsening BLE edema and abdominal bloating, LEONARD. he is scheduled to have surgical procedure on two of his heart valves next month Review of Systems Constitutional: reports: Reviewed and negative Cardiac: reports: Reviewed and negative Respiratory: reports: Dyspnea. denies: Cough, Wheezing GI: reports: Abdominal Swelling. denies: Abdominal Pain Musculoskeletal: reports: Extremity swelling Neurologic: reports: Reviewed and negative PD PAST MEDICAL HISTORY - Past Medical History Past Medical History: Yes Cardiovascular: Congestive heart failure, Coronary artery disease, [place], Atrial fibrillation Respiratory: None, Sleep apnea, CPAP use Neuro: None Endocrine/Autoimmune: None GI: None : Benign prostate hypertrophy, Other HEENT: Chronic vision loss Psych: None Musculoskeletal: None Derm: None - Past Surgical History Past Surgical History: Yes General: Hiatal hernia repair, Colonoscopy Cardiovascular: CABG, Pacemaker, AICD, Cardiac catheterization - Present Medications Home Medications: Ambulatory Orders Medication Instructions Recorded Confirmed Candesartan Cilexetil [Atacand] 4 mg PO DAILY 11/06/13 01/13/19 Digoxin [Lanoxin] 250 mcg PO DAILY 11/06/13 01/13/19 Montelukast [Singulair] 10 mg PO QPM 11/06/13 01/13/19 Rosuvastatin [Crestor] 40 mg PO QPM 11/06/13 01/13/19 Aspirin [Aspir-Low] 81 mg PO DAILY 05/31/16 01/13/19 Ciclesonide [Omnaris] 1 spray BIRD DAILY PRN 05/31/16 01/13/19 Krill/Om-3/Dha/Epa/Phospho/Ast 300 mg PO DAILY 05/31/16 01/13/19 [[place]-3 Krill Oil 300 mg Sfgl] Rabeprazole Sodium [Aciphex] 20 mg PO QDAC 05/31/16 01/13/19 Vitamin E 1,000 units PO DAILY 05/31/16 01/13/19 Rivaroxaban [Xarelto] 20 mg PO DAILY 07/29/16 01/13/19 Glucosa Bradley 2Kcl/Chondroitin Bradley 2 tab PO DAILY 10/09/17 01/13/19 [Glucosamine-Chondroitin Tablet] Multivitamin [Theragran] 1 tab PO DAILY 10/09/17 01/13/19 Albuterol Sulf [Ventolin Hfa 1 - 2 puffs INH Q4HR PRN #1 inhaler 12/19/18 01/13/19 Inhaler] Metoprolol Succinate [Toprol Xl] 1 tab PO DAILY 01/13/19 01/13/19 Olopatadine HCl [Patanase] 1 spray IH DAILY 01/13/19 01/13/19 Spironolactone 1 tab PO 01/13/19 Torsemide 10 mg PO 01/13/19 - Allergies Allergies/Adverse Reactions: Allergies Allergy/AdvReac Type Severity Reaction Status Date / Time Penicillins Allergy Unknown unk Verified 02/18/19 22:03 - Social History Does the pt smoke?: No Smoking Status: Never smoker Does the pt drink ETOH?: Yes Does the pt have substance abuse?: No - Immunizations Immunizations are current?: Yes - POLST Patient has POLST: No POLST Status: Full Code PD ED PE NORMAL - Vitals Vital signs reviewed: Yes - General General: Alert and oriented X 3, No acute distress, Well developed/nourished - HEENT HEENT: Moist mucous membranes - Neck Neck: Supple, no meningeal sign, No JVD - Cardiac Cardiac: RRR, No murmur - Respiratory Respiratory: No respiratory distress, Clear bilaterally - Abdomen Abdomen: Soft, Non tender - Derm Derm: Normal color, Warm and dry PD ED PE EXPANDED - Extremities Extremities: Pedal edema bilateral Results - Vitals Vitals: Oxygen O2 Source Room air - EKG (time done) No standard instances Rate: Rate (enter#) (70) Rhythm: Paced [place]: LAD - Labs Labs: Laboratory Tests 02/18/19 02/18/19 02/18/19 22:35 22:35 22:35 WBC 6.1 RBC 3.75 L Hgb 12.4 L Hct 37.5 L MCV 100.1 H MCH 33.1 H MCHC 33.1 RDW 16.0 H Plt Count 178 MPV 9.7 Neut # (Auto) 3.9 Lymph # (Auto) 0.8 L [place] # (Auto) 1.2 H Eos # (Auto) 0.1 Baso # (Auto) 0.1 Absolute Nucleated RBC 0.00 Nucleated RBC % 0.1 Sodium 136 Potassium 4.1 Chloride 101 Carbon Dioxide 24 Anion Gap 11.0 BUN 33 H Creatinine 2.7 H Estimated GFR (MDRD) 23 L Glucose 107 H Calcium 9.0 Total Bilirubin 2.3 H AST 193 H ALT 96 H Alkaline Phosphatase 160 H Troponin I 0.07 B-Natriuretic Peptide Total Protein 7.1 Albumin 3.3 Globulin 3.8 Albumin/Globulin Ratio 0.9 L Lipase 65 H Last Dose Date Last Dose Time Digoxin 02/18/19 02/18/19 02/19/19 22:35 23:30 02:45 WBC RBC Hgb Hct MCV MCH MCHC RDW Plt Count MPV Neut # (Auto) Lymph # (Auto) [place] # (Auto) Eos # (Auto) Baso # (Auto) Absolute Nucleated RBC Nucleated RBC % Sodium Potassium Chloride Carbon Dioxide Anion Gap BUN Creatinine Estimated GFR (MDRD) Glucose Calcium Total Bilirubin AST ALT Alkaline Phosphatase Troponin I 0.07 B-Natriuretic Peptide 599 H Total Protein Albumin Globulin Albumin/Globulin Ratio Lipase Last Dose Date UNKNOWN Last Dose Time UNKNOWN Digoxin 0.8 - Rads (name of study) chest xray Radiology: Prelim report reviewed, See rad report PD MEDICAL DECISION MAKING - ED course Complexity details: reviewed old records, reviewed results, re-evaluated patient, considered differential, d/w patient ED course: given small aliquots IV fluid (250 x w boluses, then 500) during ED stay as well as low-dose (20mg) IV lasix. lasix was to try to effect diuresis but fluids w ere needed to maintain normotensive readings. while this, combined with echo results from September and considering his lab results (bun/cr, bnp), suggest his balance between diuretic dose and fluid balance is tenuous, he does not currently have elements of H+P that indicate hospital admission. he speaks in full sentences and is in NAD at rest, mild LEONARD noted and mild/moderate edema. ideally, he can be seen in the outpatient setting expeditiously, and he does have appointment this week with his wound care specialist. Departure - Departure Disposition: Home, Self Care Clinical Impression: Dyspnea on exertion, Congestive heart failure Condition: Good Instructions: ED CHF General, ED Dyspnea Shortness of Breath Follow-Up: Ayo Melendrez MD [Primary Care Provider] - Discharge Date/Time: 02/19/19 03:42
[2019-02-19] MEDS ORDERED: FUROSEMIDE 20 MG/2 ML VIAL IVP STA (00:57)
[2019-02-19] MEDS ORDERED: SODIUM CHLORIDE 0.9% 250 ML IV STA (01:55)
[2019-02-19] MEDS ORDERED: SODIUM CHLORIDE 0.9% 500 ML IV STA (02:23)
[2019-02-19 03:13] VITALS: BP 94/67
== END 2019-02-19 03:42 | disposition home or self-care (01) ==
LOC: ED 21:53
DX: I50.9 Heart failure, unspecified (principal); I25.10 Atherosclerotic heart disease of native coronary artery without angina pectoris; Z95.1 Presence of aortocoronary bypass graft; Z95.810 Presence of automatic (implantable) cardiac defibrillator; Z79.01 Long term (current) use of anticoagulants; Z79.82 Long term (current) use of aspirin
CPT/HCPCS: 36415; 71045; 80053; 80162; 83690; 83880; 84484; 85025; 93005; 96361; 96374; 99283; 99284

== ENCOUNTER 2019-02-19 05:39 | Outpatient (CLI) | payer MEDICARE, OTHER | END 2019-02-19 05:40 | disposition short-term general hospital (02) | LOC: EMS 05:39 | PROVIDERS: ATTEND Surgery | DX: R55 Syncope and collapse (principal); S09.90XA Unspecified injury of head, initial encounter; R41.82 Altered mental status, unspecified; W19.XXXA Unspecified fall, initial encounter; Y92.002 Bathroom of unspecified non-institutional (private) residence as the place of occurrence of the external cause | CPT/HCPCS: A0425; A0427 ==